=== PATIENT | female | born 2000 | race Caucasian/White ===

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

== ENCOUNTER 2021-02-26 14:21 | Emergency (ER) | payer OTHER, SELFPAY ==
--- NOTE | 2021-02-26 14:24 | ED.URI ---
HPI - URI/Sore Throat General Chief Complaint: Upper Respiratory Infection Stated Complaint: not feeling well Time Seen by Provider: 02/26/21 14:29 Source: patient, family and RN notes reviewed Mode of arrival: ambulatory Limitations: no limitations History of Present Illness HPI Narrative: 20-year-old female presents to the [facility] with complaints of I am not feeling well. Patient reports a headache and generalized fatigue along with nausea. States she does not get her period because she is on constant control pills. Patient reports that she has been sick since February 18 but she has a history of allergies. States that she had a rapid Covid test done at [facility] on Saturday, a week ago and was negative. Had a PCR done at [facility] on Saturday which she reports is negative but her boyfriend was positive. Reports that she also had a negative influenza done at that time as well Is both influenza and Covid vaccinated Related Data Home Medications Medication Instructions Recorded Confirmed levonorgestrel-ethinyl estrad tablet DAILY 09/29/20 10/06/20 [Lessina] Allergies Allergy/AdvReac Type Severity Reaction Status Date / Time codeine AdvReac Intermediate Nausea and Verified 02/26/21 14:39 Vomiting Penicillins AdvReac Intermediate Nausea and Verified 02/26/21 14:39 Vomiting Review of Systems Review of Systems: All systems reviewed & are unremarkable except as noted in HPI and below Constitutional: Constitutional: Reports as per HPI, Denies chills, Reports fatigue, Denies fever(s) and Denies headache(s) Eyes: Eyes: Reports no additional eye complaints ENT: Reports system reviewed and no additional complaints, except as documented, Denies vertigo, Denies dizziness, Denies headache(s), Denies nasal congestion and Denies sore throat Cardiovascular: Cardiovascular: Reports no additional cardiovascular complaints, Denies chest pain, Denies syncope, Denies rapid heart rate and Denies dyspnea Respiratory: Respiratory: Reports no additional respiratory complaints, Denies cough, Denies dyspnea and Denies wheezing Gastrointestinal: Gastrointestinal: Reports as per HPI, Denies abdominal pain, Denies diarrhea, Reports nausea and Denies vomiting Musculoskeletal: Musculoskeletal: Reports as per HPI, Reports myalgias and Denies numbness Integumentary/Breasts: Skin/Breast: Reports system reviewed and no additional complaints, except as docu Neurologic: Reports system reviewed and no additional complaints, except as documented, Denies vertigo, Denies dizziness, Denies syncope, Denies headache(s), Denies focal weakness and Denies numbness Psychiatric: Psychiatric: Reports no additional psychiatric complaints Allergic/Immunologic: Allergic/Immunologic: Reports no additional allergic/immunologic complaints and Denies wheezing PMFSH Past Medical History Medical History (Updated 02/26/21 @ 14:39 by Lindsay Solano) Bleeding nose Chronic headache History of constipation History of cough History of kidney stones History of nausea History of vomiting Hx of gastroesophageal reflux (GERD) Wears glasses Surgical History Surgical History H/O wisdom tooth extraction ~2016 History of tonsillectomy and adenoidectomy ~2010 Family History Family History Other Arthritis Depression Diabetes mellitus Heart disease Social History Social History Smoking status: Never smoker Alcohol intake: current Alcohol use details: occasionally Substance use: never Additional occupation/education comments: Caregiver Gender identity (if verbalized by the patient): Female Comments At the time of my signature, I reviewed and agree with the nursing past medical, surgical, social, and family history. There is no relevant family history pertinent to the patient complaint. Ex
[2021-02-26 14:29] VITALS: BP 134/82; PULSE 96; RESP 18; TEMP 37.5; O2SAT 99
[2021-02-27 20:23] LABS: SARS-CoV-2 RNA PCR Negative
== END 2021-02-26 14:44 | disposition home or self-care (01) ==
PROVIDERS: Emergency Provider Nurse Practitioner; PCP Family Medicine Adolescent Medicine
DX: B34.9 Viral infection, unspecified (principal); Z20.822 Contact with and (suspected) exposure to COVID-19; K21.9 Gastro-esophageal reflux disease without esophagitis
CPT/HCPCS: 99213; C9803; G0463; U0003; U0005

== ENCOUNTER 2022-01-13 09:53 | Emergency (ER) | payer BC, SELFPAY ==
--- NOTE | ~2022-01-13 | CT_ITS ---
EXAMINATION: CTA chest PE protocol DATE: 01/13/2022 11:09 INDICATION: Chest pain, shortness of breath, tachycardia. Oral contraceptive use. TECHNIQUE: Computed tomography angiography (CTA) of the chest was performed with 100 mL Omnipaque-350 intravenous contrast timed to evaluate the pulmonary arteries. Coronal maximum intensity projection 3D-reconstructions were created by the technologist. Automated exposure control and iterative reconst ruction technique were employed. Exam dose: 136.46 mGy-cm total exam DLP. COMPARISON: April 10, 2019 PA and lateral chest FINDINGS: The pulmonary moderately opacified with contrast material, without evidence of pulmonary em bolism. No thoracic aortic aneurysm or dissection. Normal heart size. No pericardial or pleural effusion. No hilar or mediastinal mass lesion or lymphadenopathy. The lungs are clear of infiltrate or consolidation or mass lesion. Normal adrenal glands. Included upper abdominal structures are unremarkable. No abnormality of included skeletal structures. IMPRESSION: Negative Reviewed, dictated and finalized at Location A. Reviewed, dictated and finalized at location A. H HEAT TREAT OPERATOR IMPRESSION: Negative
[2022-01-13 09:57] VITALS: BP 119/77; PULSE 142; RESP 23; TEMP 37.6; O2SAT 97
--- NOTE | 2022-01-13 10:00 | ECG_ITS ---
Measurements Intervals [place] Rate: 122 P: 36 RI: 141 QRS: 72 QRSD: 80 T: 30 QT: 338 QTc: 482 Interpretive Statements SINUS TACHYCARDIA NONSPECIFIC T-WAVE ABNORMALITY- ANT/INF LEADS ABNORMAL ECG NO PREVIOUS ECG AVAILABLE FOR COMPARISON Electronically Signed On 01-13-2022 10:17:34 SHELTER DIRECTOR by Shaan Eduardo D.O.
--- NOTE | 2022-01-13 10:12 | ED.FEVER ---
HPI - Fever General Chief Complaint: Fever Stated Complaint: fever Time Seen by Provider: 01/13/22 10:01 History of Present Illness HPI Narrative: 21-year-old female here for evaluation of shortness of breath, fevers, cough, sore throat over the past 3 days. Patient states that her fever has reached 102 degrees despite taking Tylenol. She also notes a chest discomfort that is there when she is taking deep breaths, rates it a 4 out of 10 and describes it as a tightness. Patient was seen in urgent care facility yesterday was tested for flu and COVID but these have not resulted yet. Was told to come to the ED if her fever does not reduce. She denies any leg swelling, syncope, sick contacts, history of blood clots. Patient does take oral contraceptives. Related Data Home Medications Medication Instructions Recorded Confirmed levonorgestrel-ethinyl estradiol tablet DAILY 09/29/20 10/06/20 0.1 mg-20 mcg tablet (Lessina) Allergies Allergy/AdvReac Type Severity Reaction Status Date / Time codeine AdvReac Intermediate Nausea and Verified 01/13/22 12:24 Vomiting Penicillins AdvReac Intermediate Nausea and Verified 01/13/22 12:24 Vomiting Review of Systems Review of Systems: Gen.: Denies fevers or chills Eyes: Denies eye pain or visual change ENT: Denies congestion Respiratory: Denies shortness of breath or cough CV: Denies chest pain or palpitations GI: Denies abdominal pain nausea, emesis or diarrhea denies burning, urgency, frequency or hematuria Musculoskeletal: Denies back pain or muscle pain Neuro: Denies numbness, tingling, weakness or focal weakness Skin: Denies rash Except as documented, all other systems reviewed and negative [facility] Past Medical History Medical History (Updated 01/13/22 @ 12:41 by Marilou Andrea PA-C) Bleeding nose Chronic headache History of constipation History of cough History of kidney stones History of nausea History of vomiting Hx of gastroesophageal reflux (GERD) Wears glasses Surgical History Surgical History H/O wisdom tooth extraction ~2017 History of tonsillectomy and adenoidectomy ~2010 Family History Family History Other Arthritis Depression Diabetes mellitus Heart disease Social History Social History Smoking status: Never smoker Alcohol intake: current Alcohol use details: occasionally Substance use: never Additional occupation/education comments: Caregiver Gender identity (if verbalized by the patient): Female Exam Narrative: APPEARANCE: Uncomfortable appearing, flushed Head: Normocephalic and atraumatic. EYES: PERRLA/EOMI, conjunctivae clear NOSE: No nasal drainage EARS: External ear normal in appearance THROAT: Tonsils are surgically absent. Oropharynx is clear. Mucous membranes are moist. NECK: Supple. No adenopathy, no masses. RESPIRATORY: Airway patent, respirations nonlabored. Clear to auscultation bilaterally, no rales, rhonchi, wheezing. CARDIOVASCULAR: Tachycardic. Regular rhythm without murmurs, rubs, or gallops. ABDOMINAL: Normoactive bowel sounds. Soft, nontender, nondistended. No rebound tenderness or guarding. MUSCULOSKELETAL: Extremities are warm and well-perfused. Moves all extremities well. No edema. NEURO: Normal speech. No focal neurologic deficits. SKIN: Skin is warm and dry. No rashes. PSYCHIATRIC: Normal affect/mood. Course Vital Signs Vital signs: Vital Signs Temperature 99.6 F 01/13/22 09:57 Pulse Rate 142 H 01/13/22 09:57 Respiratory Rate 23 H 01/13/22 09:57 Blood Pressure 119/77 01/13/22 09:57 Pulse Oximetry 97 01/13/22 09:57 Oxygen Delivery Room Air 01/13/22 09:57 Temperature 99.6 F 01/13/22 09:57 Pulse Rate 100 01/13/22 12:19 Respiratory Rate 18 01/13/22 12:19 Blood Pressure 105/63
[2022-01-13 10:19] LABS: Basophils Percent Auto 0.5 % (0.2-1.2); Hematocrit 42.4 % (37.0-47.0); Hemoglobin 14.3 g/dL (12.0-15.0); Immature Granulocyte Absolute 0.03 K/mm3 (0.00-0.031); Immature Granulocyte Percent A 0.4 % (0-0.5); Lymphocytes Absolute Auto 0.44 K/mm3 (0.9-3.2); Lymphocytes Percent Auto 5.6 % (18.3-44.2); Mean Corpuscular HGB Conc 33.7 g/dl (32-36); Mean Corpuscular Hemoglobin 28.8 pg (26-34); Mean Corpuscular Volume 85.3 fl (80-100); Mean Platelet Volume 10.2 fl (7.4-10.4); Monocytes Absolute Auto 0.6 K/mm3 (0.1-0.6); Monocytes Percent Auto 7.5 % (2.6-8.5); Neutrophils Absolute Auto 6.7 K/mm3 (1.3-6.7); Platelet Count Result 243 k/mm3 (150-375); Red Blood Count 4.97 M/mm3 (4.2-5.4); Red Cell Distribution Width 12.7 % (11.5-14.5); White Blood Count 7.8 K/mm3 (4.5-10.0)
[2022-01-13] MEDS: SODIUM CHLORIDE 0.9% IV 1,000 ML 999 ML IV CONT (10:19)
[2022-01-13] MEDS: ACETAMINOPHEN 325 MG TABLET 650 MG PO (10:20)
[2022-01-13 10:29] LABS: Alanine Aminotransferase 32 U/L (6-35); Albumin Level 4.6 g/dL (3.5-5.1); Alkaline Phosphatase 68 U/L (38-126); Anion Gap 14 mmol/L (8-16); Aspartate Amino Transferase 27 U/L (14-36); Bilirubin,Total 0.7 mg/dL (0.2-1.3); Blood Urea Nitrogen 8 mg/dL (7-17); Calcium 8.9 mg/dL (8.4-10.2); Carbon Dioxide 21 mmol/L (22-30); Chloride 101 mmol/L (98-107); Estimated Glomerular Filt Rate > 60; Glucose 97 mg/dL (65-110); Potassium 3.7 mmol/L (3.4-5.0); Sodium 136 mmol/L (137-145)
[2022-01-13 10:40] LABS: Troponin I < 0.012 ng/mL (0.000-0.034)
[2022-01-13 10:54] LABS: Influenza A QL RT-PCR Positive (Negative); Influenza B QL RT-PCR Negative (Negative); SARS-CoV-2 RNA PCR Negative
[2022-01-13 11:00] VITALS: RESP 18
[2022-01-13 12:19] VITALS: BP 105/63; PULSE 100; RESP 18; O2SAT 99
== END 2022-01-13 13:19 | disposition home or self-care (01) ==
PROVIDERS: Emergency Provider Physician Assistant; PCP Family Medicine Adolescent Medicine
DX: J10.1 Influenza due to other identified influenza virus with other respiratory manifestations (principal); Z20.822 Contact with and (suspected) exposure to COVID-19; K21.9 Gastro-esophageal reflux disease without esophagitis; R00.0 Tachycardia, unspecified; R94.31 Abnormal electrocardiogram [ECG] [EKG]
CPT/HCPCS: 36415; 71275; 80053; 81025; 84484; 85025; 87636; 93005; 96360; 99284; A9270; J7030; Q9967

== ENCOUNTER 2024-04-07 17:25 | Outpatient (CLI) | payer OTHER, SELFPAY ==
--- OUTSIDE RECORDS SUMMARY | 2024-04-07 17:28 | XMS_ITS | Encounter Summary ---
Author Organization [facility] Address [address] [place] [address] Phone Care Team Providers Care Speech Instructor Name Role Phone Nic Oneal MD Primary Care Prov ider Keaton Schwarz MD Unavailable [phone] Encounter Details Date Type Department Care Team (Late st Contact Info) Description 05/08/2020 Ophth Exam [facility] Ophthalmology [address] [place] [address] 1[address] [place] [address] Christopher May MD [address] [place] [address] Social History Tobacco Use Types Packs/Day Years Used Date Smoking Tobacco: Never Comments No Sex and Gender Information Value Date Recorded Sex Assigned at Not on file Legal Sex Female 4:01 AM MATERIALS MANAGER Gender Identity Female 06/04/2019 7:19 PM CDT Sexual Orientation Straight 06/04/2019 7: 19 PM CDT documented as of this encounter Plan of Treatment Not on file documented as of this encounter Visit Diagnoses Not on filedocumented in this encounter Additional Health Concerns Infection Onset Date Last Indicated Resolved Time COVID: Suspected 02/21/2021 02/21/2021 02/22/2021 7:13 AM MATERIALS MANAGER COVID: Suspected 03/30/2021 03/31/2021 03/31/2021 3:06 AM MATERIALS MANAGER COVID: Suspected 03/31/2021 03/31/2021 04/01/2021 3:05 AM MATERIALS MANAGER COVID: Suspected 03/31/2021 03/31/2021 04/01/2021 6:25 AM MATERIALS MANAGER documented as of this encounter Eye Exam Visual Acuity Right eye Left eye Near cc 20/20 20/20 Tonometry (Tonopen, 8:48 AM) Right eye Left eye Pressure 13 17 Pupils Dark Light Shape React APD Right eye 6 3 Round Brisk - Left eye 6 3 Round Brisk - Visual Evans (Counting fingers) Right eye Left eye Full Full Extraocular Movement Right eye Left eye Full Full Color Right eye Left eye Ishihara External Exam Right eye Left eye External Normal Normal Slit Lamp Exam Right eye Left eye Lids/Lashes Normal Normal Conjunctiva/Sclera White and quiet White and ari et Cornea Clear Clear Anterior Chamber Deep and quiet Deep and quiet Iris Round and reactive Round and heather ctive Lens Clear Clear Vitreous Normal Normal Fundus Exam Right eye Left eye Disc Normal, sharp margin s, no elevation, no pallor Normal, sharp margins, no elevation, no pallor C/D Ratio 0.2 0.2 Macula Normal, flat, no heme Normal, fl at, no heme Vessels Normal Normal Periphery Normal, no heme, att ached 360 w/o RD/RT Normal, no heme, attached 360 w/o RD/RT Care Teams Speech Instructor Relationship Specialty Start Date End Date Nic Oneal MD [address] [place] [address] PCP - General Family Medicine 10/14/17 Keaton Schwarz MD [address] [address] Referring Physician Orthopedic Surgery 10/06/20 documented as of this encounter
--- OUTSIDE RECORDS SUMMARY | 2024-04-07 17:28 | XMS_ITS | Referral Summary ---
Author Organization [facility] Address [address] [place] [address] Care Team Providers Care Friction Paint Machine Tender Name Role Phone Varghese Melo MD Primary Care Provider [phone] Source Comments [facility],non-owned Affiliates and Associated Physician Practices is amultiple site organization consisting of ambulatory clinics and hospital sitesin [place], [place], [place] and [place]. This disclosure is being madepursuant to the Care Everywhere program and may not contain all information available regarding this patient. Last updated [facility] Allergies No known active allergies Medications * Be aware that medications may not be up to date on this document. Alwaysverify current medications with the patient. Medication Sig Dispensed Refills Start Date End Date Status acetaminophen (TYLENOL) 325 MG tablet Take 325 mg by mouth every 4 hours as needed. Maximum allowable Acetaminophen amount = 4 Grams (4000 mg) / 24 hours. Active Active Problems Problem Noted Date Diagnosed Date Closed fracture of part of humerus 12/05/2010 Overview (11/18/2014): Social History Tobacco Use Types Packs/Day Years Used Date Smoking Tobacco: Never Assessed Sex and Gender Information Value Date Recorded Sex Assigned at Not on file Gender Identity Not on file Sexual Orientation Not on file Plan of Treatment Not on file Care Teams Friction Paint Machine Tender Relationship Specialty Start Date End Date Varghese Melo MD [address] [place] [id number] PCP - General 11/15/10
--- OUTSIDE RECORDS SUMMARY | 2024-04-07 17:28 | XMS_ITS | Referral Summary ---
Author Organization [facility] Address [address] [place] [id number] Care Team Providers Care Director Epidemiology Name Role Phone Nic Oneal MD Primary Care Prov ider Keaton Schwarz MD Unavailable [phone] Encounters Date Type Department Care Team Description 04/01/2024 Orders Only [facility] [address] [facility] [address] [facility] [address] [place] [address] Belia Monroy MD Myalgia (Primary Dx) 04/01/2024 Telephone [facility] [address] [facility] [address] [place] [address] Belia Monroy MD PMC Preprocedure; Pre Cert 03/05/2024 8:21 PM DEFECT REPAIRER GLASSWARE - 03/05/2024 11:59 PM DEFECT REPAIRER GLASS[employer] Hospital Encounter [facility] [address] [place] [id number] Cervicalgia Discharge Disposition: Discharge to home or self care 03/02/2024 10:54 AM DEFECT REPAIRER GLASSWARE - 03/02/2024 11:59 PM DEFECT REPAIRER GLASSWARE Hospital Encounter [facility] ([facility]) [address] [place] [id number] Cervicalgia Discharge Disposition: Discharge to home or self care 03/02/2024 9:08 AM DEFECT REPAIRER GLASSWARE - 03/02/2024 11:59 PM DEFECT REPAIRER GLASSWARE Hospital Encounter [facility] [address] [facility] [address] [place] [address] Judy Chavez NP Occipital neuralgia of left side (Primary Dx); Neck pain; Cervicalgia Discharge Disposition: Discharge to home or self care 01/24/2024 8:00 AM DEFECT REPAIRER GLASSWARE Office Visit [facility] ([facility]) - [facility] [address] [facility] [address] [place] [address] [place] [address] Hiram Smith MD Neck pain (Primary Dx); Morton syndrome; Cervicalgia from Last 3 Months Allergies Active Allergy Reactions Criticality Noted Date Comments Codeine Vomiting Low 09/07/2015 Penicillins Rash Medium 03/21/2017 Medications levothyroxine (SYNTHROID) 50 mcg tablet Take 1 tablet (50 mcg total) by mouth daily 02/05/2024 Active pregabalin (LYRICA) 50 mg capsuleIndicati ons:Neuropathic Pain Take 1 capsule (50 mg total) by mouth 2 (two) times a day 60 capsule 1 03/02/2024 Active Active Problems Problem Noted Date Diagnosed Date Headache 05/08/2020 Overview (05/08/2020): Could by migraines. Cluster headaches, chiari (bending over makes it worse), trigeminal neuralgia. Positional component that is worse with laying down XXX (sign of increased ICP). Could be to to IIH. No vomiting XXX. hCT did not show any acute neurologic process however will obtain MRI/MRV due to history of control and signs of increased ICP. Would see more of an XXX in CVST. Did not appreciate any optic disc swelling on initial fundoscopic exam, however this does not exclude increased ICP. Will consult ophtalmology in AM. - MRI/MRV brain WO contrast - Optho consult to look for papilledema in AM - Treat as migraine as she is responding and has strong FMhx - Migraine cocktail (benadryl, compazine, toradol) - IV fluids - Hold OCPs Assessment & Plan (05/10/2020 6:59 AM CDT): Amy is an 19yo female with hx of precocious puberty (at 9 years old) presenting with headache starting in 03/2020. Describes headache as frequent, multiple times a day headache that feels like burning, pressure at the left skull base and around left ear. Attacks last seconds to minutes each time and pain is severe. Worse supine. No throbbing, photophobia, phonophobia, vomiting, or weight loss. Normal mentation. No meningismus. No papilledema, per ophthalmology. She has severe tenderness to palpation of left cervical paraspinous area. The description and distribution is concerning for a neuralgia (such as auriculotemporal vs occipital neuralgia), in which case we could consult pain service and consider nerve block. She may have atypical migraines (no photophobia, phonophobia, pounding) given her strong family history of migraines and improvement with migraine cocktail and magnesium. Differential also includes cluster headaches. Likely not IIH given normal ophthalmology eye exam and unremarkable brain MRI 05/08. Not Chiari malformation given unremarkable brain MRI 05/08. On control, but not DVST given normal MRV 05/08. By evening of 05/08, her headache had resolved but she had some persistent midline neck pain. CK, aldolase, LDH unremarkable so unlikely myositis, myopathy. Cervical spine MRI/MRA normal with no signs of arthritis, radiculopathy. Her neck pain is most likely secondary to being tense during her headache. The neck pain is responsive to Robaxin, diclofenac gel, and lidocaine patch. Plan: - Continue scheduled Toradol q8h and Robaxin q8h - Continue diclofenac gel, lidocaine patch - s/p brain MRI/MRV 05/08, s/p MRI/MRA soft tissue neck 05/09 - all normal - Continue home OCP - Hold home trazodone - Consider pain consult for nerve block vs starting gabapentin vs starting carbamazepine/oxcarbazapine if neuralgia-like pain recurs Assessment & Plan (05/09/2020 3:04 PM CDT): Amy is an 19yo female with hx of precocious puberty (at 9 years old) presenting with headache starting in 03/2020. Describes headache as frequent, multiple times a day headache that feels like burning, pressure at the left skull base and around left ear. Attacks last seconds to minutes each time and pain is severe. Worse supine. No throbbing, photophobia, phonophobia, vomiting, or weight loss. Normal mentation. No meningismus. No papilledema, per ophthalmology. She has severe tenderness to palpation of left cervical paraspinous area that became more midline over the course of her admission. The description and distribution is concerning for a neuralgia (such as auriculotemporal vs occipital neuralgia), in which case we could consult pain service and consider nerve block. She may have atypical migraines (no photophobia, phonophobia, pounding) given her strong family history of migraines and improvement with migraine cocktail and magnesium. Differential also includes cluster headaches. Likely not IIH given normal ophthalmology eye exam and unremarkable brain MRI 05/08. Not Chiari malformation given unremarkable brain MRI 05/08. On control, but not DVST given normal MRV 05/08. By evening of 05/08, her headache had resolved but she had some persistent midline neck pain. On 05/09, she had soft-tissue swelling but no limited ROM of her neck so we obtained myositis/myopathy workup. CK, aldolase, LDH unremarkable. Will obtain cervical spine MRI/MRA to better evaluate neck pain and headache. The neck pain is responsive to Robaxin so if the MRI is unremarkable, it may just be muscle strain secondary to abnormal positioning during headache. Plan: - MRI/MRA cervical spine with/without contrast 05/09 - Continue scheduled Toradol q8h and Robaxin q8h - Continue maintenance IV fluids - Continue home OCP - Hold home trazodone - Consider pain consult for nerve block vs starting gabapentin vs starting carbamazepine/oxcarbazapine if neuralgia-like pain recurs Assessment & Plan (05/08/2020 1:55 AM CDT): 19yoF Amy Ruggiero with hx of precocious puberty (at 9 years old) and no significant neurological history DOMINGO started in March. Describes headache as a pressure that starts in occipital region on L side that can radiate forward as a burning and shooting pain. Differential diagnosis includes atypical migraines, IIH or from switching control. Cluster headaches, chiari (bending over makes it worse), trigeminal neuralgia. Positional component that is worse with laying down (sign of increased ICP). Could be to to IIH. No vomiting or weight loss. Mentation is appropriate and does not have meningismus on exam. In ED hCT did not show any acute neurologic process, however will obtain MRI/MRV due to history of control and signs of increased ICP. Did not appreciate any optic disc swelling on initial fundoscopic exam, however this does not exclude increased ICP. Will continue to treat as migraine due to strong FMHx and improvement with migraine cocktail in ED. - MRI/MRV brain WO contrast - Optho consult to look for papilledema - Migraine cocktail (benadryl, compazine, toradol), consider Mg if not improving - IV fluids - Hold OCPs Hypophosphatemia 05/08/2020 Assessment & Plan (05/09/2020 3:08 PM CDT): Phos 1.2 on admission. Repleted with Osmoprep. Phos 4.1 on 05/09. 05/09 labs also showed unremarkable CMP except for low alk phos, slightly high ALT 47; normal Mg, normal vitamin D, normal PTH. Hypophosphatemia is of unknown etiology and is difficult to tie in with her headache and neck pain. Plan: - repeat phos check in 1 week (will notify PCP) Assessment & Plan (05/09/2020 1:52 PM CDT): Phos 1.2 on admission. Repleted with Osmoprep. Phos 4.1 on 05/09. Plan: - repeat in 1 week (will notify PCP) Short stature for age 0103/18/2017 Precocious female puberty 03/18/2017 Resolved Problems Problem Noted Date Diagnosed Date Resolved Date Functional dyspepsia 07/09/2019 020 Gastroesophageal reflux dise ase without esophagitis 03/31/2018 11/17/2019 Regurgitation of food 03/31/20182019 Non-intractable vomiting without nausea 03/31/2018 07/09/2019 Epigastric pain 01/22/2018 11/17/2019 Overview (01/22/2018): Added automatically from request for surgery [id number] Social History Tobacco Use Types Packs/Day Years Used Date Smoking Tobacco: Never Smokeless Tobacco: Never Comments No Sex and Gender Information Value Date Recorded Sex Assigned at Not on file Legal Sex Female 4:01 AM DEFECT REPAIRER GLASSWARE Gender Identity Female 06/04/2019 7:19 PM CDT Sexual Orientation Straight 06/04/2019 7: 19 PM CDT Last Filed Vital Signs Vital Sign Reading Time Taken Comments Blood Pressure 122/72 03/02/2024 9:25 AM DEFECT REPAIRER GLASSWARE Pulse 92 03/02/2024 9:25 AM DEFECT REPAIRER GLASSWARE Temperature 36.6 C (97.8 F) 03/02/2024 9:25 AM DEFECT REPAIRER GLASSWARE Respiratory Rate 16 03/02/2024 9:25 AM DEFECT REPAIRER GLASSWARE Oxygen Saturation 95% 03/02/2024 9:25 AM DEFECT REPAIRER GLASSWARE Inhaled Oxygen Concentration - - Weight 63.5 kg (140 lb) 03/05/2024 8:29 PM DEFECT REPAIRER GLASSWARE Height 147.3 cm (4' 10 ) 03/05/2024 8:29 PM DEFECT REPAIRER GLASSWARE Body Mass Index 29.26 03/05/2024 8:29 PM DEFECT REPAIRER GLASSWARE Plan of Treatment Not on file Goals Goal Patient Goal Type Associated Problems Recent Progress Patient-Stated? Author CCM Chronic Pain Care Plan Chronic Care Management No Amira Harkins RN Note: Problem: Chronic Pain Goals: 1. Minimize further functional decline 2. Maximize quality of life 3. Control pain Strategies: - Activity/exercise program recommendation - Conservative stepwise pain medicine strategy with multi-disciplinary approach - Recommend healthy lifestyle strategies and compensatory methods as needed Procedures Procedure Name Priority Date/Time Associated Diagnosis Comments MRI CERVICAL SPINE WO CONTRAST Schedule Routine, Read Routine (OP Routine) 03/05/2024 9:03 PM DEFECT REPAIRER GLASSWARE Cervicalgia XR SPINE CERVICAL W FLEXION AND EXTENSION 4 VIEWS Schedule Routine, Read Routine (OP Routine) 03/02/2024 11:12 AM DEFECT REPAIRER GLASSWARE Cervicalgia from Last 3 Months Results * MRI Cervical Spine WO Contrast (03/05/2024 9:03 PM DEFECT REPAIRER GLASSWARE) Anatomical Region Laterality Modality Spine N/A Magnetic Resonan ce 03/06/2024 12:4 8 PM DEFECT REPAIRER GLASSWARE Impressions 03/06/2024 1:03 PM DEFECT REPAIRER GLASSWARE Normal exam. Dictated by: Seferino Mary D.O. The radiology attending physician has personally reviewed this study, and had reviewed and/or edited this written report and agrees with it. Electronically signed by: MD Rodney Live 03/06/2024 1:03 PM DEFECT REPAIRER GLASSWARE EXAMINATION: Magnetic resonance imaging (MRI) of the cervical spine without contrast HISTORY: 23 years-old Female with Neck pain, chronic. Left-sided neck pain radiating to left arm and upper extremity. TECHNIQUE: Multiplanar multi-weighted MRI of the cervical spine was performed without intravenous contrast using the standard protocol. COMPARISON: MRI soft tissue neck 05/07/2020. Cervical spine radiographs 03/02/2024. FINDINGS: The alignment of the cervical spine is normal. Vertebral bodies demonstrate normal signal intensity on all sequences. No acute fracture is identified. The craniocervical junction is normal. The visualized portions of the skull base and the posterior fossa are normal. The spinal cord demonstrates normal signal intensity on all sequences. Intervertebral disks have normal height and signal intensity. There are no annular fissures identified. No soft tissue abnormality is identified. Normal signal voids are present in the vertebral arteries. C2-C3: The disk is normal in configuration. There is no facet arthropathy. There is no uncovertebral joint disease. There is no neuroforaminal stenosis. There is no spinal canal stenosis. C3-C4: The disk is normal in configuration. There is no facet arthropathy. There is no uncovertebral joint disease. There is no neuroforaminal stenosis. There is no spinal canal stenosis. C4-C5: The disk is normal in configuration. There is no facet arthropathy. There is no uncovertebral joint disease. There is no neuroforaminal stenosis. There is no spinal canal stenosis. C5-C6: The disk is normal in configuration. There is no facet arthropathy. There is no uncovertebral joint disease. There is no neuroforaminal stenosis. There is no spinal canal stenosis. C6-C7: The disk is normal in configuration. There is no facet arthropathy. There is no uncovertebral joint disease. There is no neuroforaminal stenosis. There is no spinal canal stenosis. C7-T1: The disk is normal in configuration. There is no facet arthropathy. There is no uncovertebral joint disease. There is no neuroforaminal stenosis. There is no spinal canal stenosis. Procedure Note Camilo Chase MD PhD - 03/06/2024 EXAMINATION: Magnetic resonance imaging (MRI) of the cervical spine without contrast HISTORY: 23 years-old Female with Neck pain, chronic. Left-sided neck pain radiating to left arm and upper extremity. TECHNIQUE: Multiplanar multi-weighted MRI of the cervical spine was performed without intravenous contrast using the standard protocol. COMPARISON: MRI soft tissue neck 05/07/2020. Cervical spine radiographs 03/02/2024. FINDINGS: The alignment of the cervical spine is normal. Vertebral bodies demonstrate normal signal intensity on all sequences. No acute fracture is identified. The craniocervical junction is normal. The visualized portions of the skull base and the posterior fossa are normal. The spinal cord demonstrates normal signal intensity on all sequences. Intervertebral disks have normal height and signal intensity. There are no annular fissures identified. No soft tissue abnormality is identified. Normal signal voids are present in the vertebral arteries. C2-C3: The disk is normal in configuration. There is no facet arthropathy. There is no uncovertebral joint disease. There is no neuroforaminal stenosis. There is no spinal canal stenosis. C3-C4: The disk is normal in configuration. There is no facet arthropathy. There is no uncovertebral joint disease. There is no neuroforaminal stenosis. There is no spinal canal stenosis. C4-C5: The disk is normal in configuration. There is no facet arthropathy. There is no uncovertebral joint disease. There is no neuroforaminal stenosis. There is no spinal canal stenosis. C5-C6: The disk is normal in configuration. There is no facet arthropathy. There is no uncovertebral joint disease. There is no neuroforaminal stenosis. There is no spinal canal stenosis. C6-C7: The disk is normal in configuration. There is no facet arthropathy. There is no uncovertebral joint disease. There is no neuroforaminal stenosis. There is no spinal canal stenosis. C7-T1: The disk is normal in configuration. There is no facet arthropathy. There is no uncovertebral joint disease. There is no neuroforaminal stenosis. There is no spinal canal stenosis. IMPRESSION: Normal exam. Dictated by: Seferino Mary D.O. The radiology attending physician has personally reviewed this study, and had reviewed and/or edited this written report and agrees with it. Electronically signed by: Camilo Chase MD Judy Chavez NP IMG MRI PROCEDURES Christina l Result * XR Spine Cervical W Flexion And Extension 4 or 5 Views (03/02/2024 11:12 AM DEFECT REPAIRER GLASSWARE) Anatomical Region Laterality Modality Spine N/A Computed Radiogr aphy 03/02/2024 12:2 2 PM DEFECT REPAIRER GLASSWARE Impressions 03/02/2024 12:22 PM DEFECT REPAIRER GLASSWARE 1. Normal radiographic appearance of the cervical spine. Electronically signed by: Odell Stoner D.O. Narrative 03/02/2024 12:22 PM DEFECT REPAIRER GLASSWARE EXAMINATION: XR SPINE CERVICAL W FLEXION AND EXTENSION 4 OR 5 VIEWS HISTORY: chronic neck pain FINDINGS: Comparison is made to 05/07/2020 radiographs. Intervertebral disc spaces and vertebral body heights are maintained. No significant osseous foraminal stenosis. Normal alignment without spondylolisthesis. Cervical prevertebral soft tissues are within normal limits. Procedure Note Odell Stoner, DO - 03/02/2024 EXAMINATION: XR SPINE CERVICAL W FLEXION AND EXTENSION 4 OR 5 VIEWS HISTORY: chronic neck pain FINDINGS: Comparison is made to 05/07/2020 radiographs. Intervertebral disc spaces and vertebral body heights are maintained. No significant osseous foraminal stenosis. Normal alignment without spondylolisthesis. Cervical prevertebral soft tissues are within normal limits. IMPRESSION: 1. Normal radiographic appearance of the cervical spine. Electronically signed by: Odell Stoner D.O. Judy Chavez NP IMG XR PROCEDURES Final Result from Last 3 Months Insurance [employer] [facility] HMO/PPO Address: [address] [address] [place] [address] [place] [address] [facility] H[facility]/PPO Address: [facility] [address] [place] [address] [facility] AETNA SIG [id number] Advance Directives For more information, please contact: [phone] Documents on File Type Date Recorded Patient Vp Respiratory Expl anation ADVANCE DIRECTIVE 05/07/2020 5:10 PM * Full Code (Latest Code Status on File) Date Activated Date Inactivated Comments 05/08/2020 12:14 AM 05/10/2020 4:50 PM Care Teams Director Epidemiology Relationship Specialty Start Date End Date Nic Oneal MD [address] [place] [address] PCP - General Family Medicine 10/14/17 Keaton Schwarz MD [address] [facility] [address] [place] [address] Referring Physician Orthopedic Surgery 10/06/20
--- OUTSIDE RECORDS SUMMARY | 2024-04-07 17:28 | XMS_ITS | Patient Health Summary ---
Author Organization [facility] [employer] Address [address] [place] [address] Care Team Providers Care Police Manager Name Role Phone Varghese Melo MD Primary Care Provider [phone] Note from [facility],non-owned Affiliates and Associated Physician Practices is amultiple site organization consisting of ambulatory clinics and hospital sitesin [place], [place], [place] and [place]. This disclosure is being madepursuant to the Care Everywhere program and may not contain all information available regarding this patient. Last updated 17.[facility] [employer] Allergies No known active allergies Medications * Be aware that medications may not be up to date on this document. Alwaysverify current medications with the patient. * acetaminophen (TYLENOL) 325 MG tablet Take 325 mg by mouth every 4 hours as needed. Maximum allowable Acetaminophen amount = 4 Grams (4000 mg) / 24 hours. Active Problems Problem Noted Date Diagnosed Date Closed fracture of part of humerus 12/05/2010 Social History Tobacco Use Types Packs/Day Years Used Date Smoking Tobacco: Never Assessed Sex and Gender Information Value Date Recorded Sex Assigned at Not on file Gender Identity Not on file Sexual Orientation Not on file Procedures * XR HUMERUS RIGHT 2VW OR MORE(Performed 12/05/2010) Performed for Closed fracture of unspecified part of humerus Results * XR HUMERUS 2+ VW RIGHT (12/05/2010 1:08 PM CDT) Anatomical Region Laterality Modality Upper Extremity Radiographic Kenia ging 12/05/2010 1:28 PM CDT Impressions 12/05/2010 2:58 PM CDT Healing fracture of the proximal humeral diaphysis. D: Chris Wallis M.D. Narrative 12/05/2010 2:58 PM CDT Exam: Right humerus, 2 views Date: 12/05/2010 Comparison: 11/14/2010 Findings: A healing fracture of the proximal humeral diaphysis is unchanged in position and alignment. Increased periosteal new bone formation is seen at the fracture site. No other fractures are identified. The glenohumeral joint is well aligned. Bone mineralization is normal. Procedure Note Andrade Ed Franco - 12/05/2010 Exam: Right humerus, 2 views Date: 12/05/2010 Comparison: 11/14/2010 Findings: A healing fracture of the proximal humeral diaphysis is unchanged in position and alignment. Increased periosteal new bone formation is seen at the fracture site. No other fractures are identified. The glenohumeral joint is well aligned. Bone mineralization is normal. IMPRESSION Healing fracture of the proximal humeral diaphysis. D: Chris Wallis M.D. Lindsey Melgoza MD [facility]ST[facility] Care Teams Police Manager Relationship Specialty Start Date End Date Varghese Melo MD [address] [place] [id number] PCP - General 11/15/10
--- OUTSIDE RECORDS SUMMARY | 2024-04-07 17:28 | XMS_ITS | Encounter Summary ---
Author Organization [facility] Healthcare Address [address] [place] [address] Care Team Providers Care Control System Manager Name Role Phone Nic Oneal MD Primary Care Prov ider Keaton Schwarz MD Unavailable [phone] Reason for Visit * Reason Onset Date Comments PMC Preprocedure 04/01/2024 Pre Cert 04/01/2024 Encounter Details Date Type Department Care Team (Late st Contact Info) Description 04/01/2024 Telephone [facility] [place] [facility] [address] [facility] Advanced Medicine [address] [place] [address] Belia Monroy MD [address] [place] [address] PMC Preprocedure; Pre Cert Social History Tobacco Use Types Packs/Day Years Used Date Smoking Tobacco: Never Smokeless Tobacco: Never Comments No Sex and Gender Information Value Date Recorded Sex Assigned at Not on file Legal Sex Female 4:01 AM X RAY EQUIPMENT SERVICER Gender Identity Female 06/04/2019 7:19 PM CDT Sexual Orientation Straight 06/04/2019 7: 19 PM CDT documented as of this encounter Miscellaneous Notes * Telephone Encounter - Rupa Cronin RN - 04/02/2024 10:26 AM CST LM to call [phone] to reschedule due to Occipital NB denial. Reschedule for at least another 2 weeks out for TPI; to try to get approval for TPI. X RAY EQUIPMENT SERVICER * Telephone Encounter - Yue Grimm - 04/01/2024 12:50 PM CST I can precert for a TPI, I won't have approval by tomorrow though. Her insurance takes quite awhile. X RAY EQUIPMENT SERVICER * Telephone Encounter - Yue Grimm - 04/01/2024 8:46 AM CST Occipital Nerve Block was denied Not a covered benefit, considered unproven and not medically necessary to tread occiptal headaches or neuralgia. No peer to peer or appeal available as it is not a covered benefit. Please review and advise. X RAY EQUIPMENT SERVICER documented in this encounter Plan of Treatment Not on file documented as of this encounter Goals Goal Patient Goal Type Associated Problems [...] lifestyle strategies and compensatory methods as needed documented as of this encounter Visit Diagnoses Not on filedocumented in this encounter Care Teams Control System Manager Relationship Specialty Start Date End Date Nic Oneal MD [address] [place] [address] PCP - General Family Medicine 10/14/17 Keaton Schwarz MD [address] [address] Referring Physician Orthopedic Surgery 10/06/20 documented as of this encounter
--- OUTSIDE RECORDS SUMMARY | 2024-04-07 17:28 | XMS_ITS | Clinical Summary ---
Author Organization [facility] Address [address] [place] [address] Care Team Providers Care Relay Associate Name Role Phone Varghese Melo MD Primary Care Provider [phone] Source Comments [facility],non-owned Affiliates and Associated Physician Practices is amultiple site organization consisting of ambulatory clinics and hospital sitesin [place], [place], [place] and [place]. This disclosure is being madepursuant to the Care Everywhere program and may not contain all information available regarding this patient. Last updated 17.[facility] Allergies No known active allergies Medications * [...] Orientation Not on file Plan of Treatment Health Maintenance Due Date Last Done Comments PAP SMEAR 2001 HIV SCREENING 2016 HPV VACCINE (1 - 3-dose series) 2016 CHLAMYDIA/GONORRHEA SCREENING 2017 MENINGOCOCCAL (Group B) VACC INE (1 of 2 - Standard) 2017 HEPATITIS C SCREENING 10/24/2019 DTAP/TDAP/TD VACCINES (1 - Tdap) 2020 HEPATITIS B VACCINE (1 of 3 - 19+ 3-dose series) 2020 COVID-19 VACCINE (1 - 2023-2 5 season) 2023 INFLUENZA VACCINE (#1) 2023 DEPRESSION SCREENING 02/19/2024 ZOSTER VACCINE (1 of 2) 10/29/2051 HIB VACCINE Aged Out No longer eligi ble based on patient's age to complete this topic MENINGOCOCCAL VACCINE Aged Out No theresa mary eligible based on patient's age to complete this topic PNEUMOCOCCAL VACCINE Aged Out No long er eligible based on patient's age to complete this topic Care Teams Relay Associate Relationship Specialty Start Date End Date Varghese Melo MD [address] [place] [id number] PCP - General 11/15/10
--- OUTSIDE RECORDS SUMMARY | 2024-04-07 17:28 | XMS_ITS | Clinical Summary ---
Author Organization [facility] Address [address] [place] [address] Care Team Providers Care Water Superintendent Name Role Phone Nic Oneal MD Primary Care Provider [phone] Allergies Active Allergy Reactions Criticality Noted Date Comments Codeine Rash,Vomiting Low 09/14/2020 Penicillins Rash,Vomiting Low 09/14/2020 Medications levonorgestrel-e thinyl estradiol (LESSINA-28) 0.1-20 MG-MCG tablet Take 1 tablet by mouth daily. Active Social History Tobacco Use Types Packs/Day Years Used Date Smoking Tobacco: Former Cigarettes Q uit: 2019 Smokeless Tobacco: Never Alcohol Use Standard Drinks/Week Comments Yes 0 (1 standard drink = 0.6 oz pur e alcohol) occasional Comments No Sex and Gender Information Value Date Recorded Sex Assigned at Female 09/14/2020 3:47 AM CDT Legal Sex Female 5:39 PM CDT Gender Identity Female 09/14/2020 3:47 AM CDT Sexual Orientation Straight 09/14/2020 3: 47 AM CDT Last Filed Vital Signs Vital Sign Reading Time Taken Comments Blood Pressure 111/75 09/14/2020 5:26 AM CDT Pulse 81 09/14/2020 5:26 AM CDT Temperature 36.8 C (98.3 F) 09/14/2020 5:26 AM CDT Respiratory Rate 18 09/14/2020 5:26 AM CDT Oxygen Saturation 100% 09/14/2020 5:26 AM CDT Inhaled Oxygen Concentration - - Weight 49.9 kg (110 lb) 09/14/2020 3:33 AM CDT Height 147.3 cm (4' 10 ) 09/14/2020 3:33 AM CDT Body Mass Index 22.99 09/14/2020 3:33 AM CDT Plan of Treatment Health Maintenance Due Date Last Done Comments Cervical Cancer Screening Pap Smear (Age 21 to 29) Every 3 Years 2001 Cervical Cancer Screening 2001 Annual Physical 2004 DTaP, Tdap and Td Vaccines (6 - Tdap) 2012 07/21/2007, 10/19/2003, 05/07/2002, Additional history exists HPV Vaccines (2 - 2-dose series) 03/26/2014 09/23/2013 Meningococcal B Vaccine (1 of 2 - Standard) 2017 Hepatitis C 10/29/2019 Hepatitis B Vaccines (1 of 3 - 19+ 3-dose series) 2020 COVID-19 Vaccine ( - season) 2023 05/10/2020, 04/19/2020 Influenza Adult (#1) 2023 Meningococcal Vaccine Aged Out 09/23/2013 No theresa mary eligible based on patient's age to complete this topic Pneumococcal Vaccine: Pediatrics (0 to 5 Years) and At-Risk Patients (6 to 64 Years) Aged Out No longer eligible based on patient's age to complete this topic RSV Immunizations Under 20 Months Aged Out No longer eligible based on patient's age to complete this topic [facility] Care Teams Water Superintendent Relationship Specialty Start Date End Date Nic Oneal MD [address] [address] PCP - General FAMILY PRACTICE 09/14/20
--- OUTSIDE RECORDS SUMMARY | 2024-04-07 17:28 | XMS_ITS | Clinical Summary ---
Author Organization [facility] Address [address] [place] [address] Care Team Providers Care Cause Analyst Name Role Phone Nic Oneal MD Primary Care Prov ider Keaton Schwarz MD Unavailable [phone] Allergies Active Allergy Reactions Criticality Noted Date Comments Codeine Vomiting Low 09/07/2015 Penicillins Rash Medium 03/21/2017 Medications levothyroxine (SYNTHROID) 50 mcg tablet Take 1 tablet (50 mcg total) by mouth daily 02/05/2024 Active pregabalin (LYRICA) 50 mg capsuleIndicati ons:Neuropathic Pain Take 1 capsule (50 mg total) by mouth 2 (two) times a day 60 capsule 1 03/02/2024 5 Active Active Problems Problem Noted Date Diagnosed [...] Diagnosed Date Resolved Date Functional dyspepsia 07/09/2019 05/21/2 020 Gastroesophageal reflux dise ase without esophagitis 03/31/2018 11/17/2019 Regurgitation of food 03/31/20182019 Non-intractable vomiting without nausea 03/31/2018 07/09/2019 Epigastric pain 01/22/2018 11/17/2019 Overview (01/22/2018): Added automatically from request for surgery [id number] Encounters Date Type Department Care Team Description 04/01/2024 Orders Only [facility] [address] [place] [address] for Advanced Medicine [address] [place] [address] Belia Monroy MD Myalgia (Primary Dx) 04/01/2024 Telephone [facility] [address] [place] [address] Advanced Medicine [address] [place] [address] Belia Monroy MD PMC Preprocedure; Pre Cert 03/05/2024 8:21 PM GOLF CLUB FACER - 03/05/2024 11:59 PM GOLF CLUB FACER Hospital Encounter [facility] ([facility]) [address] [place] [address] Cervicalgia Discharge Disposition: Discharge to home or self care 03/02/2024 10:54 AM GOLF CLUB FACER - 03/02/2024 11:59 PM GOLF CLUB FACER Hospital Encounter [facility] ([facility]) [address] [place] [address] Cervicalgia Discharge Disposition: Discharge to home or self care 03/02/2024 9:08 AM GOLF CLUB FACER - 03/02/2024 11:59 PM GOLF CLUB FACER Hospital Encounter [facility] [address] [place] [address] Advanced Medicine [address] [place] [address] Judy Chavez NP Occipital neuralgia of left side (Primary Dx); Neck pain; Cervicalgia Discharge Disposition: Discharge to home or self care 01/24/2024 8:00 AM GOLF CLUB FACER Office Visit [facility] ([facility]) - [facility] [address] [place] [address] Advanced Medicine [address]th [place] [address] [place] [address] Hiram Smith MD Neck pain (Primary Dx); Gadsden syndrome; Cervicalgia from Last 3 Months Surgical History Surgery Date Site/Laterality Comments TONSILECTOMY, ADENOIDECTOMY, BILATERAL MYRINGOTOMY AND TUBES 02/19/2008 - 02/17/2009 WISDOM TOOTH EXTRACTION 02/18/2018 - 02/17/2019 Medical History Medical History Date Comments Personal history of other di seases of the nervous system and sense organs History of migraine - (Added by TW Conv) Gastroesophageal reflux dise ase without esophagitis 03/31/2018 Anxiety UTI (urinary tract infection) Family History Medical History Relation Name Comments Arthritis Maternal Grandfather Heart disease Maternal Grandfather Hypertension Maternal Grandfather Diabetes Paternal Grandfather GI problems Paternal Grandfather Family history of gastroesophageal reflux disease - (Added by TW Conv) Kidney disease Paternal Grandfather Narcolepsy Paternal Grandfather Relation Name Status Comments Maternal Grandfather Paternal Grandfather Social History Tobacco Use Types Packs/Day Years Used Date Smoking Tobacco: Never Smokeless Tobacco: Never Comments No Sex and Gender Information Value Date Recorded Sex Assigned at Not on file Legal Sex Female 4:01 AM GOLF CLUB FACER Gender Identity Female 06/04/2019 7:19 PM CDT Sexual Orientation Straight 06/04/2019 7: 19 PM CDT Obstetrics History Last Filed Vital Signs Vital Sign Reading Time Taken Comments Blood Pressure 122/72 03/02/2024 9:25 AM GOLF CLUB FACER Pulse 92 03/02/2024 9:25 AM GOLF CLUB FACER Temperature 36.6 C (97.8 F) 03/02/2024 9:25 AM GOLF CLUB FACER Respiratory Rate 16 03/02/2024 9:25 AM GOLF CLUB FACER Oxygen Saturation 95% 03/02/2024 9:25 AM GOLF CLUB FACER Inhaled Oxygen Concentration - - Weight 63.5 kg (140 lb) 03/05/2024 8:29 PM GOLF CLUB FACER Height 147.3 cm (4' 10 ) 03/05/2024 8:29 PM GOLF CLUB FACER Body Mass Index 29.26 03/05/2024 8:29 PM GOLF CLUB FACER Plan of Treatment Health Maintenance Due Date Last Done Comments Cervical Cancer Screening 2001 Depression Screening 2001 Hepatitis C Screening 2001 HPV Vaccines (2 - 2-dose series) 03/26/2014 09/23/2013 Meningococcal B Vaccine (1 of 2 - Standard) 2017 Regular Well Visit/Exam 18-64 10/29/2019 DTaP/Tdap/Td Vaccine (7 - Td or Tdap) 09/24/2023 09/23/2013, 07/21/2007, 10/19/2003, Additional history exists Covid-19 Vaccine (2023- season) 2023 05/10/2020, 04/19/2020 Influenza Vaccine (#1) 2023 9, 12/26/2006, 12/20/2005 Hepatitis B Screening Completed 05/07/2002 , 2001, 2001 Varicella Vaccines Completed 09/23/2013, 12/07/2003 Pneumococcal vaccine <65 Aged Out No longer eligible based on patient's age to complete this topic Goals Goal Patient Goal Type Associated Problems Recent Progress Patient-Stated? Author CCM Chronic Pain Care Plan Chronic Care Management No Amira Harkins, RN Note: Problem: Chronic Pain Goals: 1. [...] Read Routine (OP Routine) 03/05/2024 9:03 PM GOLF CLUB FACER Cervicalgia XR SPINE CERVICAL W FLEXION AND EXTENSION 4 VIEWS Schedule Routine, Read Routine (OP Routine) 03/02/2024 11:12 AM GOLF CLUB FACER Cervicalgia from Last 3 Months Results * MRI Cervical Spine WO Contrast (03/05/2024 9:03 PM GOLF CLUB FACER) Anatomical Region Laterality Modality Spine N/A Magnetic Resonan ce 03/06/2024 12:4 8 PM GOLF CLUB FACER Impressions 03/06/2024 1:03 PM GOLF CLUB FACER Normal exam. Dictated by: Seferino Mary D.O. The radiology attending physician has personally reviewed this study, and had reviewed and/or edited this written report and agrees with it. Electronically signed by: Camilo Chase MD Narrative 03/06/2024 1:03 PM GOLF CLUB FACER EXAMINATION: Magnetic resonance imaging (MRI) of the [...] Judy Chavez NP IMG MRI PROCEDURES Christina beulah Result * XR Spine Cervical W Flexion And Extension 4 or 5 Views (03/02/2024 11:12 AM GOLF CLUB FACER) Anatomical Region Laterality Modality Spine N/A Computed Radiogr aphy 03/02/2024 12:2 2 PM GOLF CLUB FACER Impressions 03/02/2024 12:22 PM GOLF CLUB FACER 1. Normal radiographic appearance of the cervical spine. Electronically signed by: Odell Stoner D.O. Narrative 03/02/2024 12:22 PM GOLF CLUB FACER EXAMINATION: XR SPINE CERVICAL W FLEXION AND [...] Final Result from Last 3 Months Insurance [facility] [address] Advance Directives For more information, please contact: [phone] Documents on File Type Date Recorded Patient Manager Of Broadcast Content Expl anation ADVANCE DIRECTIVE 05/07/2020 5:10 PM * Full Code (Latest Code Status on File) Date Activated Date Inactivated Comments 05/08/2020 12:14 AM 05/10/2020 4:50 PM Care Teams Cause Analyst Relationship Specialty Start Date End Date Nic Oneal MD [address] [place] [address] PCP - General Family Medicine 10/14/17 Keaton Schwarz MD [address] [address] Referring Physician Orthopedic Surgery 10/06/20
[2024-04-07 17:50] LABS: Alanine Aminotransferase 20 U/L (6-35); Albumin Level 4.4 g/dL (3.5-5.1); Alkaline Phosphatase 71 U/L (38-126); Anion Gap 13 mmol/L (4-12); Aspartate Amino Transferase 23 U/L (14-36); Bilirubin,Total 0.5 mg/dL (0.2-1.3); Blood Urea Nitrogen 13 mg/dL (7-17); Calcium 9.5 mg/dL (8.4-10.2); Carbon Dioxide 23 mmol/L (22-30); Chloride 104 mmol/L (98-107); Cholesterol 190 mg/dL (0-200); Estimated Glomerular Filt Rate > 60; Glucose 89 mg/dL (65-110); HDL Direct 54 mg/dL; Potassium 4.2 mmol/L (3.4-5.0); Sodium 140 mmol/L (137-145); Triglycerides 52 mg/dL (<150)
[2024-04-07 18:01] LABS: LDL Cholesterol Direct 112 mg/dL
== END 2024-04-07 17:26 | disposition home or self-care (01) ==
LOC: ANHLAB 17:27
PROVIDERS: PCP Family Medicine; Visit Provider Family Medicine
DX: E03.9 Hypothyroidism, unspecified (principal); Z13.6 Encounter for screening for cardiovascular disorders; Z13.1 Encounter for screening for diabetes mellitus
CPT/HCPCS: 36415; 80053; 80061; 83036; 84443

== ENCOUNTER 2024-11-24 09:18 | Outpatient (CLI) | payer OTHER, SELFPAY ==
--- OUTSIDE RECORDS SUMMARY | 2024-11-24 09:50 | XMS_ITS | Clinical Summary ---
Author Organization [facility] Address [address] [place] [address] Care Team Providers Care Prick Stitcher Name Role Phone Nic Oneal MD Primary Care Prov ider Keaton Schwarz MD Unavailable [phone] Allergies Active Allergy Reactions Criticality Noted Date Comments Codeine Vomiting Low 09/07/2015 Penicillins Rash Medium 03/21/2017 Medications levothyroxine (SYNTHROID) 50 mcg tablet Take 1 tablet (50 mcg total) by mouth daily 02/05/2024 Active phentermine (ADIPEX-P) 37.5 mg tablet 05/06/2024 Active Active Problems Problem Noted Date Diagnosed [...] Plan (05/08/2020 1:55 AM CDT): 19yoF Amy Everright with hx of precocious puberty (at 9 [...] (01/22/2018): Added automatically from request for surgery [id number] Surgical History Surgery Date Site/Laterality Comments TONSILECTOMY, ADENOIDECTOMY, BILATERAL MYRINGOTOMY AND TUBES 02/19/2008 - 02/17/2009 WISDOM TOOTH EXTRACTION 02/18/2018 - 02/17/2019 ADENOIDECTOMY COLONOSCOPY Medical History Medical History Date Comments Personal history of other di seases of the nervous system and sense organs History of migraine - (Added by TW Conv) Gastroesophageal reflux dise ase without esophagitis 03/31/2018 Anxiety UTI (urinary tract infection) Family History Medical History Relation Name Comments Arthritis Maternal Grandfather Oscar Heart disease Maternal Grandfather Oscar Hypertension Maternal Grandfather Oscar Diabetes Paternal Grandfather Laberta GI problems Paternal Grandfather Alberta Family history of gastroesophageal reflux disease - (Added by TW Conv) Kidney disease Paternal Grandfather Alberta Narcolepsy Paternal Grandfather Alberta Relation Name Status Comments Maternal Grandfather Oscar Paternal Grandfather Alberta Social History Tobacco Use Types Packs/Day Years Used Date Smoking Tobacco: Never Smokeless Tobacco: Never Comments No Sex and Gender Information Value Date Recorded Sex Assigned at Not on file Legal Sex Female 4:01 AM POWER BRAKE OPERATOR Gender Identity Female 06/04/2019 7:19 PM CDT Sexual Orientation Straight 06/04/2019 7: 19 PM CDT Obstetrics History Last Filed Vital Signs Vital Sign Reading Time Taken Comments Blood Pressure 125/77 05/15/2024 2:36 PM CDT Pulse 95 05/15/2024 2:36 PM CDT Temperature 36.5 C (97.7 F) 05/15/2024 2:36 PM CDT Respiratory Rate 14 05/15/2024 2:36 PM CDT Oxygen Saturation 99% 05/15/2024 2:36 PM CDT Inhaled Oxygen Concentration - - Weight 58.1 kg (128 lb) 05/15/2024 2:36 PM CDT Height 147.3 cm (4' 10) 05/15/2024 2:36 PM CDT Body Mass Index 26.75 05/15/2024 2:36 PM CDT Plan of Treatment Health Maintenance Due Date Last Done Comments Cervical Cancer Screening 2001 Depression Screening 2001 Hepatitis C Screening 2001 HPV Vaccines (2 - 2-dose series) 03/26/2014 09/23/2013 Meningococcal B Vaccine (1 of 2 - Standard) 2017 Regular Well Visit/Exam 18-64 10/29/2019 DTaP/Tdap/Td Vaccine (7 - Td or Tdap) 09/24/2023 09/23/2013, 07/21/2007, 10/19/2003, Additional history exists Covid-19 Vaccine ( season) 2024 05/10/2020, 04/19/2020 Influenza Vaccine (#1) 2024 9, 12/26/2006, 12/20/2005 Hepatitis B Screening Completed 05/07/2002 , 2001, 2001 Varicella Vaccines Completed 09/23/2013, 12/07/2003 Pneumococcal vaccine <65 Aged Out No longer eligible based on patient's age to complete this topic Goals Goal Patient Goal Type Associated Problems Recent Progress Patient-Stated? Author CCM Chronic Pain Care Plan Chronic Care Management No change(05/15 3:32 PM CDT) No Amira Harkins, RN Note: Problem: Chronic Pain Goals: 1. Minimize further functional decline 2. Maximize quality of life 3. Control pain Strategies: - Activity/exercise program recommendation - Conservative stepwise pain medicine strategy with multi-disciplinary approach - Recommend healthy lifestyle strategies and compensatory methods as needed Insurance [employer] [facility] HMO/PPO Address: [address] [address] [place] [address] [facility] HMO/PPO Address: [address] [address] [place] [address] [facility] [employer] SIG [id number] Advance Directives For more information, please contact: [phone] Documents on File Type Date Recorded Patient Adjunct Professor Of Voice Expl anation ADVANCE DIRECTIVE 05/07/2020 5:10 PM * Full Code (Latest Code Status on File) Date Activated Date Inactivated Comments 05/08/2020 12:14 AM 05/10/2020 4:50 PM Care Teams Prick Stitcher Relationship Specialty Start Date End Date Nic Oneal MD PCP - General Family Medicine 10/14/17 Keaton Schwarz MD [address] [address] Referring Physician Orthopedic Surgery 10/06/20
--- OUTSIDE RECORDS SUMMARY | 2024-11-24 09:50 | XMS_ITS | Encounter Summary ---
Author Organization [facility] Healthcare Address [address] [place] [address] Care Team Providers Care Loading Unit Operator Crimping Name Role Phone Nic Oneal MD Primary Care Prov ider Keaton Schwarz MD Unavailable [phone] Reason for Visit * Reason Onset Date Comments Pre Procedu Instructions 05/12/2024 Encounter Details Date Type Department Care Team (Late st Contact Info) Description 05/12/2024 Telephone [facility] [place] [facility] [address] [facility] Advanced Medicine [address] [place] [address] Belia Monroy MD [address] [place] [address] Pre Procedu Instructions Social History Tobacco Use Types Packs/Day Years Used Date Smoking Tobacco: Never Smokeless Tobacco: Never Comments No Sex and Gender Information Value Date Recorded Sex Assigned at Not on file Legal Sex Female 4:01 AM PRODUCE FIELD MERCHANDISER Gender Identity Female 06/04/2019 7:19 PM CDT Sexual Orientation Straight 06/04/2019 7: 19 PM CDT documented as of this encounter Plan of Treatment Not on file documented as of this encounter Goals Goal Patient Goal Type Associated Problems Recent Progress Patient-Stated? Author CCM Chronic Pain Care Plan Chronic Care Management No change(05/15 3:32 PM CDT) Amira Dueñas, RN Note: Problem: Chronic Pain Goals: 1. Minimize further functional decline 2. Maximize quality of life 3. Control pain Strategies: - Activity/exercise program recommendation - Conservative stepwise pain medicine strategy with multi-disciplinary approach - Recommend healthy lifestyle strategies and compensatory methods as needed documented as of this encounter Visit Diagnoses Not on filedocumented in this encounter Care Teams Loading Unit Operator Crimping Relationship Specialty Start Date End Date Nic Oneal MD PCP - General Family Medicine 10/14/17 Keaton Schwarz MD [address] [address] Referring Physician Orthopedic Surgery 10/06/20 documented as of this encounter
--- OUTSIDE RECORDS SUMMARY | 2024-11-24 09:50 | XMS_ITS | Clinical Summary ---
Author Organization [facility] Address [address] [place] [address] Care Team Providers Care Soda Flaker Name Role Phone Nic Oneal MD Primary Care Provider [phone] Allergies Active Allergy Reactions Criticality Noted Date [...] 3:33 AM CDT Height 147.3 cm (4' 10) 09/14/2020 3:33 AM CDT Body Mass Index [...] series) 2020 COVID-19 Vaccine ( - season) 2024 05/10/2020, 04/19/2020 Influenza Adult (#1) 2024 Meningococcal Vaccine Aged Out 09/23/2013 No theresa mary eligible based on patient's age to complete this topic Pneumococcal Vaccine: Pediatrics (0 to 5 Years) and At-Risk Patients (6 to 49 Years) Aged Out No longer eligible based on patient's age to complete this topic RSV Immunizations Under 20 Months Aged Out No longer eligible based on patient's age to complete this topic Insurance [facility] Care Teams Soda Flaker Relationship Specialty Start Date End Date Nic Oneal MD [address] [address] PCP - General FAMILY PRACTICE 09/14/20
--- OUTSIDE RECORDS SUMMARY | 2024-11-24 09:50 | XMS_ITS | Clinical Summary ---
Author Organization [facility] Address [address] [address] Care Team Providers Care Customer Experience Associate Name Role Phone Varghese Melo MD Primary Care Provider [phone] Source Comments [facility],non-owned Affiliates and Associated Physician Practices is amultiple site organization consisting of ambulatory clinics and hospital sitesin [place], [place], [place] and [place]. This disclosure is being madepursuant to the Care Everywhere program and may not contain all information available regarding this patient. Last updated 17[employer] [facility] Allergies No known active allergies Medications * Be aware that medications may not be up to date on this document. Alwaysverify current medications with the patient. acetaminophen (TYLENOL) 325 MG tablet Take 325 mg by mouth every 4 hours as needed. Maximum allowable Acetaminophen amount = 4 Grams (4000 mg) / 24 hours. Active Active Problems Problem Noted Date Diagnosed Date Closed fracture of part of humerus 12/05/2010 Overview (11/18/2014): Social History Tobacco Use Types Packs/Day Years Used Date Smoking Tobacco: Never Assessed Comments Unknown Sex and Gender Information Value Date Recorded Sex Assigned at Not on file Legal Sex Female 12:32 PM MANAGER LINUX Gender Identity Not on file Sexual Orientation Not on file Plan of Treatment Health Maintenance Due Date Last Done Comments HIV SCREENING 2016 HPV VACCINE (1 - 3-dose series) 2016 CHLAMYDIA/GONORRHEA SCREENING 2017 MENINGOCOCCAL (Group B) VACC INE SHARED DECISION-MAKING (1 of 2 - Standard) 2017 HEPATITIS C SCREENING 10/24/2019 DTAP/TDAP/TD VACCINES (1 - Tdap) 2020 HEPATITIS B VACCINE (1 of 3 - 19+ 3-dose series) 2020 PAP SMEAR 2022 DEPRESSION SCREENING 02/19/2024 COVID-19 VACCINE (1 - 2023-2 5 season) 2024 INFLUENZA VACCINE (#1) 2024 ZOSTER VACCINE (1 of 2) 10/29/2051 HIB VACCINE Aged Out No longer eligi ble based on patient's age to complete this topic MENINGOCOCCAL GROUPS A/C/Y/W VACCINE Aged Out No longer eligible b ased on patient's age to complete this topic PNEUMOCOCCAL VACCINE Aged Out No long er eligible based on patient's age to complete this topic Care Teams Customer Experience Associate Relationship Specialty Start Date End Date Varghese Melo MD [address] [place] [address] PCP - General 11/15/10
--- OUTSIDE RECORDS SUMMARY | 2024-11-24 09:50 | XMS_ITS | Encounter Summary ---
Author Organization [facility] Address [address] [place] [address] Phone Care Team Providers Care Benefits Manager Name Role Phone Nic Oneal MD Primary Care Prov ider Keaton Schwarz MD Unavailable [phone] Encounter Details Date Type Department Care Team (Late st Contact Info) Description 05/08/2020 Ophth Exam [facility] Medicine Ophthalmology [address] [place] [address] 1[address] [place] [address] Christopher May MD [address] [place] [address] Social History Tobacco Use Types Packs/Day Years Used Date Smoking Tobacco: Never Comments No Sex and Gender Information Value Date Recorded Sex Assigned at Not on file Legal Sex Female 4:01 AM TACK PULLER Gender Identity Female 06/04/2019 7:19 PM CDT Sexual Orientation Straight 06/04/2019 7: 19 PM CDT documented as of this encounter Plan of Treatment Not on file documented as of this encounter Visit Diagnoses Not on filedocumented in this encounter Additional Health Concerns Infection Onset Date Last Indicated Resolved Time COVID: Suspected 02/21/2021 02/21/2021 02/22/2021 7:13 AM TACK PULLER COVID: Suspected 03/30/2021 03/31/2021 03/31/2021 3:06 AM TACK PULLER COVID: Suspected 03/31/2021 03/31/2021 04/01/2021 3:05 AM TACK PULLER COVID: Suspected 03/31/2021 03/31/2021 04/01/2021 6:25 AM TACK PULLER documented as of this encounter Eye Exam [...] heme, attached 360 w/o RD/RT Care Teams Benefits Manager Relationship Specialty Start Date End Date Nic Oneal MD PCP - General Family Medicine 10/14/17 Keaton Schwarz MD [address] [place] [address] Referring Physician Orthopedic Surgery 10/06/20 documented as of this encounter
[2024-11-24 10:16] LABS: Beta HCG Quantitative 69.97 mIU/ML
== END 2024-11-24 09:19 | disposition home or self-care (01) ==
LOC: ANHLAB 09:21
PROVIDERS: PCP Nurse Practitioner Family; Visit Provider Family Medicine Adolescent Medicine
DX: N91.2 Amenorrhea, unspecified (principal)
CPT/HCPCS: 36415; 84702

== ENCOUNTER 2025-01-08 12:01 | Emergency (ER) | payer OTHER, SELFPAY ==
--- NOTE | ~2025-01-08 | US_ITS ---
EXAMINATION: US venous doppler [facility] DATE: 01/08/2025 15:30 INDICATION: Elevated d-dimer. TECHNIQUE: Grayscale ultrasound images without and with compression and Doppler ultrasound images of the bilateral lower extremity veins were obtained. COMPARISON: CT angiogram chest dated 01/13/2022. FINDINGS: The visualized portions of right common femoral vein, profunda (deep) femoral vein, femoral vein, popliteal vein, peroneal veins, posterior tibial veins, and greater saphenous vein outflow are patent. The visualized portions of left common femoral vein, profunda femoral vein, femoral vein, popliteal vein, peroneal veins, posterior tibial veins, and greater saphenous vein outflow are patent. IMPRESSION: 1. No deep venous thrombosis of major veins in both lower extremities.. Reviewed, dictated and finalized at location T. IRER
--- NOTE | ~2025-01-08 | NM_ITS ---
EXAMINATION: Perfusion lung scan: DATE: 01/08/2025. INDICATION: Possible pulmonary embolus. TECHNIQUE: Multiple projections of the chest were obtained after injection of 4.1 mCi of technetium 99M MAA. COMPARISON: Chest x-ray dated 01/08/2025. FINDINGS: Normal perfusion of both lungs. There are no segmental perfusion defects seen on both sides. IMPRESSION: 1. Normal perfusion lung scan. No evidence of pulmonary embolus is seen. Reviewed, dictated and finalized at location T. RTRAIN DESIGN ENGINEER
--- NOTE | ~2025-01-08 | XR_ITS ---
EXAMINATION: XR chest 1V portable DATE: 01/08/2025 15:44 INDICATION: Chest pain. TECHNIQUE: A single frontal view of the chest was obtained. COMPARISON: Chest x-ray dated 04/10/2019 FINDINGS: Heart size is normal. Lungs are clear. Ryann and mediastinum are normal. IMPRESSION: 1. No acute findings. Reviewed, dictated and finalized at location T. T MECHANIC IMPRESSION: 1. No acute findings.
--- NOTE | 2025-01-08 12:02 | ECG_ITS ---
Test Date: 2025-01-08 12:10:02 Measurements Intervals [place] Rate: 83 P: 22 W[place]: 145 QRS: 65 QRSD: 73 T: 14 QT: 341 QTc: 402 Interpretive Statements SINUS RHYTHM WITH SINUS ARRHYTHMIA LOW QRS VOLTAGE IN PRECORDIAL LEADS [QRS DEFLECTION < 1.0 mV IN CHEST LEADS] No previous ECG available for comparison Electronically Signed On 01-08-2025 19:04:13 PRODUCT MANAGEMENT CONSULTANT by Dawit Rm M.D.
[2025-01-08 12:03] VITALS: BP 104/74; PULSE 89; RESP 16; TEMP 36.9; O2SAT 98
--- NOTE | 2025-01-08 12:08 | ED_ITS ---
HPI - SOB/Dyspnea General Chief Complaint: Shortness of Breath/Dyspnea Stated Complaint: 10 weeks , CP, SOB Time Seen by Provider: 01/08/25 12:09 Focused HPI: Patient is a 24-year-old female who presents to the ER with shortness of breath and chest pain that started around 230 this morning. She reports she is 10 weeks and this is her 1st . Patient called her OBGYN who advised her to come into the ER for further evaluation. She denies any recent fevers, cough, congestion, abdominal pain or vaginal bleeding. Patient endorses a history of GERD and hypothyroidism, for which she is treated by her PCP. GENERAL: Well-appearing, well-nourished, and in no acute distress. HEAD: Normocephalic, atraumatic. CHEST: Clear to auscultation. ?No respiratory distress. HEART: Regular rate and rhythm.? NEURO: ?Alert and oriented x3. Patient screened in triage and initial orders placed.? ?Additional care and disposition to be based upon?diagnostic testing and treatment. Related Data Allergies Allergy/AdvReac Type Severity Reaction Status Date / Time codeine AdvReac Intermediate Nausea and Verified 01/08/25 12:02 Vomiting Penicillins AdvReac Intermediate Nausea and Verified 01/08/25 12:02 Vomiting PMFSH Past Medical History Medical History History of kidney stones Hx of gastroesophageal reflux (GERD) Chronic headache Surgical History Surgical History H/O wisdom tooth extraction ~2016 History of tonsillectomy and adenoidectomy ~2010 Family History Family History Other Arthritis Depression Diabetes mellitus Heart disease Social History Social History Smoking status: Never smoker Alcohol intake: current Alcohol use details: occasionally Substance use: never Lack of Transportation: No Lack of Food: Never True Current Housing: I Have Housing Concerned About Future Housing: No Difficulty Paying Gas/Electric Bills: No Difficulty Paying for Meds: No Currently Unemployed: No Education: High School Diploma/GED Difficulty w/ Childcare or Family Care: No Living arrangements: with family 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 Gender identity (if verbalized by the patient): Female Course Vital Signs Vital signs: Vital Signs Temperature 36.9 C 01/08/25 12:03 Pulse Rate 89 01/08/25 12:03 Respiratory Rate 16 01/08/25 12:03 Blood Pressure 104/74 01/08/25 12:03 Pulse Oximetry 98 01/08/25 12:03 Oxygen Delivery Room Air 01/08/25 12:03 Temperature 36.9 C 01/08/25 12:03 Pulse Rate 77 01/08/25 19:19 Respiratory Rate 16 01/08/25 19:19 Blood Pressure 121/70 01/08/25 19:19 Pulse Oximetry 100 01/08/25 19:19 Oxygen Delivery Room Air 01/08/25 14:17 MDM - SOB/Dyspnea Lab Data 01/08/25 12:58 01/08/25 12:58 Labs: Lab Results 01/08/25 01/08/25 Range/Units 12:58 15:39 WBC 8.1 (4.5-10.0) K/mm3 RBC 4.20 (4.2-5.4) M/mm3 Hgb 12.2 (12.0-15.0) g/dL Hct 36.2 L (37.0-47.0) % MCV 86.2 (80-100) fl MCH 29.0 (26-34) pg MCHC 33.7 (32-36) g/dl RDW 13.2 (11.5-14.5) % Plt Count 276 (150-375) k/mm3 MPV 9.9 (7.4-10.4) fl Immature Gran % (Auto) 0.4 (0-0.5) % Neut % (Auto) 64.7 (45.5-73.1) % Lymph % (Auto) 26.9 (18.3-44.2) % [place] % (Auto) 6.5 (2.6-8.5) % Eos % (Auto) 1.0 (0-4.4) % Baso % (Auto) 0.5 (0.2-1.2) % Lymph # (Auto) 2.19 (0.9-3.2) K/mm3 [place] # (Auto) 0.5 (0.1-0.6) K/mm3 Eos # (Auto) 0.1 (0-0.3) K/mm3 Baso # (Auto) 0.0 (0.0-0.1) K/mm3 Abs Immat Gran (auto) 0.03 (0.00-0.031) K/mm3 Absolute Neuts (auto) 5.3 (1.3-6.7) K/mm3 Absolute Nucleated RBC 0.000 (0.0-0.012) K/mm3 Nucleated RBC % 0.0 (0.0-0.2) % PT 13.4 (11.1-14.7) Seconds INR 1.0 APTT 28.9 (22.3-36.8) Seconds D-Dimer 0.61 H (<0.48) ug/mL Sodium 134 L (137-145) mmol/L Potassium 3.8 (3.4-5.0) mmol/L Chloride 103 (98-107) mmol/L Carbon Dioxide 24 (22-30) mmol/L Anion Gap 7 (4-12) mmol/L BUN 5 L D (7-17) mg/dL Creatinine 0.50 L (0.7-1.0) mg/dL Estim Creat Clear Calc Not Reportable Estimated GFR > 60 (59 - ) Glucose 80 (65-110) mg/dL Calcium 9.2 (8.4-10.2) mg/dL Total Bilirubin 0.4 (0.2-1.3) mg/dL AST 26 (14-36) U/L ALT 32 (6-35) U/L Alkaline Phosphatase 56 (38-126) U/L Troponin I < 0.012 < 0.012 (0.000-0.034) ng/mL Total Protein 7.2 (6.3-8.2) g/dL Albumin 4.2 (3.5-5.1) g/dL Lipase 81 (23-300) U/L Discharge Plan Discharge Clinical Impression: Chest pain at rest, Anxiety Patient Disposition: Home Condition: Stable Instructions: Chest Pain (DC), Anxiety (ED) Additional Instructions: Return if symptoms are worsening , call your family physician for appointment, take Tylenol as as needed for aches and pain, continue home medications. Patient Language: Wallisian Prescriptions: No Action phentermine 37.5 mg tablet 37.5 mg PO DAILY Qty: 30 0RF Rx Instructions: Must administer 30 minutes before or 1-2 hours after breakfast triamcinolone acetonide 0.1 % cream 1 applic topical TID Qty: 15 0RF Rx Instructions: apply a small amount to rash on arms tid fosfomycin tromethamine 3 gram packet 3 g PO ONCE Qty: 1 0RF levothyroxine [Levo-T] 50 mcg tablet 50 mcg PO DAILY Qty: 90 1RF Follow-up/Referrals: Laura Sol APRN [Primary Care Provider, Family Practice]
[2025-01-08 13:07] LABS: Hematocrit 36.2 % (37.0-47.0); Hemoglobin 12.2 g/dL (12.0-15.0); Immature Granulocyte Percent A 0.4 % (0-0.5); Lymphocytes Absolute Auto 2.19 K/mm3 (0.9-3.2); Mean Corpuscular HGB Conc 33.7 g/dl (32-36); Mean Corpuscular Hemoglobin 29.0 pg (26-34); Mean Corpuscular Volume 86.2 fl (80-100); Nucleated Red Blood Cells Absolute Auto 0.000 K/mm3 (0.0-0.012); Nucleated Red Blood Cells Perc 0.0 % (0.0-0.2); Platelet Count Result 276 k/mm3 (150-375); Red Blood Count 4.20 M/mm3 (4.2-5.4); White Blood Count 8.1 K/mm3 (4.5-10.0)
[2025-01-08 13:23] LABS: INR 1.0; Partial Thromboplastin Time 28.9 Seconds (22.3-36.8); Prothrombin Time 13.4 Seconds (11.1-14.7)
[2025-01-08 13:26] LABS: Alanine Aminotransferase 32 U/L (6-35); Albumin Level 4.2 g/dL (3.5-5.1); Alkaline Phosphatase 56 U/L (38-126); Anion Gap 7 mmol/L (4-12); Aspartate Amino Transferase 26 U/L (14-36); Bilirubin,Total 0.4 mg/dL (0.2-1.3); Blood Urea Nitrogen 5 mg/dL (7-17); Calcium 9.2 mg/dL (8.4-10.2); Carbon Dioxide 24 mmol/L (22-30); Chloride 103 mmol/L (98-107); Estimated Glomerular Filt Rate > 60; Glucose 80 mg/dL (65-110); Lipase 81 U/L (23-300); Potassium 3.8 mmol/L (3.4-5.0); Sodium 134 mmol/L (137-145); Total Protein 7.2 g/dL (6.3-8.2)
[2025-01-08 13:37] LABS: Troponin I < 0.012 ng/mL (0.000-0.034)
--- NOTE | 2025-01-08 13:45 | ED.SOB ---
HPI - SOB/Dyspnea General Chief Complaint: Shortness of Breath/Dyspnea Stated Complaint: 10 weeks , CP, SOB Time Seen by Provider: 01/08/25 12:09 Source: patient Mode of arrival: ambulatory Limitations: no limitations History of Present Illness HPI Narrative: 24 years old white female 10 weeks been having intermittent chest pain over the last 7 days usually last up to 5 minutes then resolved, across the chest, tightness associated with shortness of breath, no radiation. Today pain woke her up from sleep at 2:30 a.m. in the morning with shortness of breath lasted for hours. Currently no pain but complaining of tightness across the chest. Patient is 1 para 0 0, on vitamins A lot of stress lately, dental hygiene, to be graduated in 2 weeks after finishing her tests Related Data Allergies Allergy/AdvReac Type Severity Reaction Status Date / Time codeine AdvReac Intermediate Nausea and Verified 01/08/25 12:02 Vomiting Penicillins AdvReac Intermediate Nausea and Verified 01/08/25 12:02 Vomiting Review of Systems Review of Systems: All systems reviewed & are unremarkable except as noted in HPI and below PMFSH Past Medical History Medical History History of kidney stones Hx of gastroesophageal reflux (GERD) Chronic headache Surgical History Surgical History H/O wisdom tooth extraction ~2016 History of tonsillectomy and adenoidectomy ~2010 Family History Family History Other Arthritis Depression Diabetes mellitus Heart disease Social History Social History Smoking status: Never smoker Alcohol intake: current Alcohol use details: occasionally Substance use: never Lack of Transportation: No Lack of Food: Never True Current Housing: I Have Housing Concerned About Future Housing: No Difficulty Paying Gas/Electric Bills: No Difficulty Paying for Meds: No Currently Unemployed: No Education: High School Diploma/GED Difficulty w/ Childcare or Family Care: No Living arrangements: with family 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, no gross motor deficit Course Vital Signs Vital signs: Vital Signs Temperature 36.9 C 01/08/25 12:03 Pulse Rate 89 01/08/25 12:03 Respiratory Rate 16 01/08/25 12:03 Blood Pressure 104/74 01/08/25 12:03 Pulse Oximetry 98 01/08/25 12:03 Oxygen Delivery Room Air 01/08/25 12:03 Temperature 36.9 C 01/08/25 12:03 Pulse Rate 74 01/08/25 14:18 Respiratory Rate 15 01/08/25 14:18 Blood Pressure 104/71 01/08/25 14:18 Pulse Oximetry 100 01/08/25 14:18 Oxygen Delivery Room Air 01/08/25 14:17 MDM - SOB/Dyspnea MDM Narrative Medical decision making narrative: Patient is 10 weeks , came with intermittent retrosternal chest pain, worse this morning. Vital signs are stable Physical examination is unremarkable Differential diagnosis include anxiety like symptoms, pulmonary embolism, pneumonia, pleural effusion, pneumothorax, pneumonia Blood workup today includes CBC, CMP, D-dimer showed elevated D-dimer of 0.61, otherwise within normal limit Chest x-ray showed no acute abnormality Venous Doppler lower extremity bilaterally showed no deep vein thrombosis, V/Q scan showed no pulmonary embolism Diagnosis chest pain during likely secondary to anxiety/stress The pt was discharged to home.the pt,s condition upon discharge was fair,education was provided to the pt in reference to the final impression,discharge study results,treatment,prognosis and need for follow up . Differential Diagnosis Differential diagnosis: Likely other (As above) Medical Records Attestation: I reviewed the patient's medical records. Lab Data Attestation: I reviewed the patient's lab results. 01/08/25 12:58 01/08/25 12:58 Labs: Lab Results 01/08/25 01/08/25 Range/Units 12:58 15:39 WBC 8.1 (4.5-10.0) K/mm3 RBC 4.20 (4.2-5.4) M/mm3 Hgb 12.2 (12.0-15.0) g/dL Hct 36.2 L (37.0-47.0) % MCV 86.2 (80-100) fl MCH 29.0 (26-34) pg MCHC 33.7 (32-36) g/dl RDW 13.2 (11.5-14.5) % Plt Count 276 (150-375) k/mm3 MPV 9.9 (7.4-10.4) fl Immature Gran % (Auto) 0.4 (0-0.5) % Neut % (Auto) 64.7 (45.5-73.1) % Lymph % (Auto) 26.9 (18.3-44.2) % [place] % (Auto) 6.5 (2.6-8.5) % Eos % (Auto) 1.0 (0-4.4) % Baso % (Auto) 0.5 (0.2-1.2) % Lymph # (Auto) 2.19 (0.9-3.2) K/mm3 [place] # (Auto) 0.5 (0.1-0.6) K/mm3 Eos # (Auto) 0.1 (0-0.3) K/mm3 Baso # (Auto) 0.0 (0.0-0.1) K/mm3 Abs Immat Gran (auto) 0.03 (0.00-0.031) K/mm3 Absolute Neuts (auto) 5.3 (1.3-6.7) K/mm3 Absolute Nucleated RBC 0.000 (0.0-0.012) K/mm3 Nucleated RBC % 0.0 (0.0-0.2) % PT 13.4 (11.1-14.7) Seconds INR 1.0 APTT 28.9 (22.3-36.8) Seconds D-Dimer 0.61 H (<0.48) ug/mL Sodium 134 L (137-145) mmol/L Potassium 3.8 (3.4-5.0) mmol/L Chloride 103 (98-107) mmol/L Carbon Dioxide 24 (22-30) mmol/L Anion Gap 7 (4-12) mmol/L BUN 5 L D (7-17) mg/dL Creatinine 0.50 L (0.7-1.0) mg/dL Estim Creat Clear Calc Not Reportable Estimated GFR > 60 (59 - ) Glucose 80 (65-110) mg/dL Calcium 9.2 (8.4-10.2) mg/dL Total Bilirubin 0.4 (0.2-1.3) mg/dL AST 26 (14-36) U/L ALT 32 (6-35) U/L Alkaline Phosphatase 56 (38-126) U/L Troponin I < 0.012 < 0.012 (0.000-0.034) ng/mL Total Protein 7.2 (6.3-8.2) g/dL Albumin 4.2 (3.5-5.1) g/dL Lipase 81 (23-300) U/L Imaging Data Radiologist's impression: Impressions Venous Doppler Study 01/08/25 15:31 IMPRESSION: 1. No deep venous thrombosis of major veins in both lower extremities.. Chest X-Ray 01/08/25 15:47 IMPRESSION: 1. No acute findings. Pulmonary Perfusion Imaging 01/08/25 17:47 IMPRESSION: 1. Normal perfusion lung scan. No evidence of pulmonary embolus is seen. ECG Data EKG #1: Attestation: I personally reviewed and interpreted this ECG as follows: ECG completion date: 01/08/25 Interpretation: Normal sinus rhythm at 83 beats per minute, low QRS voltage in precordial leads, no previous EKG available for comparison Critical Care Time Critical Care Time Critical Care Time: Yes Total Critical Care Time: 30 Discharge Plan Discharge Clinical Impression: Chest pain at rest, Anxiety Patient Disposition: Home Condition: Stable Instructions: Chest Pain (DC), Anxiety (ED) Additional Instructions: Return if symptoms are worsening , call your family physician for appointment, take Tylenol as as needed for aches and pain, continue home medications. Patient Language: Greek Prescriptions: No Action phentermine 37.5 mg tablet 37.5 mg PO DAILY Qty: 30 0RF Rx Instructions: Must administer 30 minutes before or 1-2 hours after breakfast triamcinolone acetonide 0.1 % cream 1 applic topical TID Qty: 15 0RF Rx Instructions: apply a small amount to rash on arms tid fosfomycin tromethamine 3 gram packet 3 g PO ONCE Qty: 1 0RF levothyroxine [Levo-T] 50 mcg tablet 50 mcg PO DAILY Qty: 90 1RF Follow-up/Referrals: Laura Sol APRN [Primary Care Provider, [facility]]
--- OUTSIDE RECORDS SUMMARY | 2025-01-08 14:06 | XMS_ITS | Continuity of Care Document ---
Author Organization [facility] Address [address] [place] [address] Care Team Providers Care Grad Intern Name Role Phone AP JOHNSON Primary Care Provider [phone] Assessment No assessment recorded. Plan of Treatment Reminders Order Date Submit Date Provider Last Modified By Organization Details Last Modified Time Details Appointments OB NEW 2024 08:30A M ULTRASOUND Not available Not available Not available [facility] LOOK 2024 09:00A M Brandon FIGUEROA MD Not available Not available Not available Lab None record ed. Referral None record ed. Procedures None record ed. Surgeries None record ed. Imaging None record ed. Medication Orders None record ed. Patient TargetsNo targets recorded. Patient InstructionsNo instructions recorded. Reason for Referral None Reported. Results Created Date Observation Date Name Description Value Unit Range Abnormal Flag Note LastModifiedBy Organization Detail LastModifiedTime 12/26/19 25 12/25/2024 imagi ng/di agnos tic resul t No observ ation record ed. REZA Castro [address], [place], [address], 12/25/2024 15:50:54 Result Notes None recorded. Procedures Surgical History Date Name Laterality Status Provider Name and Address Organization Details Recorded Time 4 Date of Last Pap Smear completed Usha Sage [facility] 12/25/2024 15:32:10 4 Colonoscopy completed Angelika Noel [facility] 09/09/2024 09:55:21 4 endoscopy completed [facility] 09/09/2024 09:55:41 extraction of wisdom tooth completed [facility] 09/09/2024 09:54:43 tonsilectomy/ad enoids completed [facility] 09/09/2024 09:54:55 Imaging Results None recorded. Procedure Notes None recorded. Medical Equipment None Reported. Allergies Allergen ID Allergen Name Allergen Category Reaction Reaction Severity Criticality Documentation Date Start Date Code Code System Note Provider Name and Address Organization Details Recorded Time 52515 codeine medicatio n Not available Not available Not available 09/09/[address] [facility] 09:50:52 20234 Product containin g penicilli n (product) medicatio n Not available Not available Not available 09/09/2024 [address] [facility] 09:50:59 Medications Name Sig Start Date Stop Date Status Note LastModified by Organization Details LastModified Time phentermine 37.5 mg tablet TAKE 1 TABLET BY MOUTH DAILY. TAKE 30 MINUTES BEFORE OR 1-2 HOURS AFTER BREAKFAST 5 09/09 completed Not Available Not Available Not Available triamcinolo ne acetonide 0.1 % topical cream APPLY TO RASH ON ARMS THREE TIMES DAILY 09/09 completed Not Available Not Available Not Available levothyroxi ne 50 mcg tablet TAKE 1 TABLET BY MOUTH ONCE DAILY active Not Available Not Available No t Available methylpredn isolone 4 mg tablets in a dose pack FOLLOW PACKAGE DIRECTION S 09/09 completed Not Available Not Available Not Available metoclopram daniel 10 mg tablet Take 1 tablet 4 times a day by oral route as needed. 2024 active Not Available Not Available Not Avai lable nitrofurant oin monohydrate /macrocryst als 100 mg capsule TAKE 1 CAPSULE BY MOUTH EVERY 12 HOURS FOR 5 DAYS 09/09 completed Not Available Not Available Not Available omeprazole 12/25 completed Not Available Not Available Not Available active Not Available Not Avai lable Not Available Vitals Date Recorded Body height Body mass index (BMI) Body weight Systolic And Diastolic Provider Name and Address Organization Details Last Updated DateTime 12/25/2024 147.32 cm 28.6 kg/m2 55572.15 g 119/80 mm[Hg] Usha Chu [facility] 12/25/2024 15:29:58 Social History Question Answer Notes LastModified by Organizat ion Details LastModified Time Tobacco Smoking Status Never Smoker Angelika Noel teagan, [facility] 09/09/2024 09:53:31 Do You Have An Advance Directive? No Information n ot available 12/25/2024 How Many Years Have You Consumed Alcohol? 2 Information not available 12/25/2024 Are You Blind Or Do You Have Difficulty Seeing? No Information n ot available 09/09/2024 What Is Your Level Of Caffeine Consumption? Occasional [email or web address] Information not available 09/09/2024 How Much Tobacco Do You Chew? None Information not available 12/25/2024 In The 14 Days Before Symptom Onset, Have You Had Close Contact With A Laboratory-confirm ed COVID-19 While That Case Was Ill? No [email or web address] Information n ot available 09/09/2024 In The 14 Days Before Symptom Onset, Have You Had Close Contact With A Person Who Is Under Investigation For COVID-19 While That Person Was Ill? No [email or web address] Information not available 09/09/2024 Have You Been To An Area Known To Be High Risk For COVID-19? No Information not available 09/09/2024 Are You Deaf Or Do You Have Serious Difficulty Hearing? No [email or web address] Information not available 09/09/2024 What Type Of Diet Are You Following? REGULAR [email or web address] Information n ot available 09/09/2024 What Is The Highest Grade Or Level Of School You Have Completed Or The Highest Degree You Have Received? [id number] Information not available 12/25/2024 Are There Any Guns Present In Your Home? Yes Information not available 12/25/2024 Do You Use Protection During Sex? No [email or web address] Information not available 09/09/2024 Do You Use Your Seat Belt Or Car Seat Routinely? Yes [email or web address] Information not available 09/09/2024 Are You Sexually Active? Yes Information not available 09/09/2024 Do You Have Smoke And Carbon Monoxide Detectors In Your Home? Yes [email or web address] Information not available 09/09/2024 How Much Tobacco Do You Smoke? No Information not available 12/25/2024 Do You Use Sunscreen Routinely? Yes [email or web address] Information not available 09/09/2024 Have You Used IV Drugs? No Information not available 12/25/2024 Do You Have Difficulty Walking Or Climbing Stairs? No [email or web address] Information not available 09/09/2024 Sex: Unknown Functional Status Question Answer Note LastModified by Organizat ion Details LastModified Time Do you use any illicit or recreational drugs? No Information not available 12/25/2024 What is your level of alcohol consumption? None Information not available 12/25/2024 Are you currently employed? Yes [email or web address] Information not available 09/09/2024 Are you able to walk independently without assistance or assistive devices? YESWOREST [email or web address] Information not available 09/09/2024 Are you able to care for yourself independently? 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 No [email or web address] Information not available 09/09/2024 What is your exercise level? Moderate [email or web address] Information not available 09/09/2024 Mental Status Question Answer Note LastModified by Organization D etails LastModified Time Do you feel stressed (tense, restless, nervous, or anxious, or unable to sleep at night)? [id number] [email or web address] Information not available 09/09/2024 Family History Relationship Description Onset Age of this Age Resolved Age Notes LastModified by Organization Details LastModified Time Maternal Grandfather Heart disease [email or web address] Not available 2024 10:00:54 Maternal Grandfather Diabetes mellitus [email or web address] Not available 2024 10:01:06 Maternal Grandfather Hypertensive disorder [email or web address] Not available 2024 10:01:22 Paternal Grandfather Heart disease [email or web address] Not available 2024 10:00:54 Paternal Grandfather Diabetes mellitus [email or web address] Not available 2024 10:01:06 Paternal Grandfather Hypertensive disorder [email or web address] Not available 2024 10:01:22 Mother Cyst of ovary [email or web address] Not available 08/2024 14:33:48 Mother Polycystic ovary syndrome [email or web address] Not available 08/2024 14:33:48 Sister Cyst of ovary [email or web address] Not available 08/2024 14:33:48 Paternal Grandmother Cyst of ovary [email or web address] Not available 08/2024 14:33:48 Paternal Uncle Cyst of ovary [email or web address] Not available 08/2024 14:33:48 Paternal Aunt Polycystic ovary syndrome [email or web address] Not available 08/2024 14:33:48 Medical History Condition Response Allergies (Food, seasonal, environmental ) N Other N Breast Cancer N Drug/Latex Allergies/Reactions N Blood Transfusion N Dermatologic Disorders N Lung Disease N Defects or Inherited Disease N Breast Problem N Gestational Diabetes N Hematologic disorders N Anesthesia Complications N History of STI N Deep Vein Thrombosis N Polycystic ovary syndrome N Anxiety Disorder N Autoimmune disease N Arthritis N Infertility N Polyps N Acid Reflux (GERD) N History of abnormal pap N Cancer N Stroke N Varicosities N Neurologic/Epilepsy N Endometriosis N High Cholesterol N Headaches N Fibromyalgia N Kidney Disease N Heart Problems N Kidney or Bladder Problems N Thyroid Problems Y GI Problems Y Eating Disorder N Anemia N Art (IVF or FET) N Psychiatric Illness N Ovarian Cancer N Diabetes N Pulmonary (TB, Asthma) N Hepatitis/Liver Disease N No Past Medical History N Eczema N Urinary Tract Infection N Abuse/Domestic Violence N Asthma N Trauma/Violence N Depression/ depression N Heart Disease N Pre-Eclampsia N Hypertension N Osteoporosis N Thrombophilias N Gynecological History Statement/Question Response Flow Moderate Date of LMP 10/26/2024 On BCP's at Conception? N Was last menstrual period normal Y STIs/STDs N HPV Vaccine Y Duration of Flow (days) 4 Current Control Method Are cycles usually normal Y Frequency of Cycle (Q days) 29 Sexually Active? Y Menses Monthly Y Age of first menstrual cycle 9 Date of Last Pap Smear 03/18/2023 Sexual Problems? N LMP Definite N Obstetrics History GPAL:G 0 P 0 0 0 0 Past Encounters Encounter ID Performer Location Encounter Start Date Encounter Closed Date Diagnosis/Indication Diagnosis SNOMED-CT Code Diagnosis ICD10 Code Diagnosis IMO Codes Diagnosis Note [id number] MARISELA MCALLISTER MD [place] [address] [address] 12/25/2024 14:33:05 12/25/2024 15:28:30 [id number] MARISELA MCALLISTER MD [place] [address] [address] 12/25/2024 14:33:44 12/25/2024 16:16:02 Nausea and vomiting 00045221 R11.2 [id number] test positive 560578615 Z32.01 422137 1. Exam today within normal limits.2. Ultrasound today confirms GA and viability. EDC . GC/Clamydi a testing done: will f/u as indicated. 4. ACOG guidelines and plan of care for reviewed with patient. All questions answered.5 . Return to office at 12 weeks for new OB visit6. Will need new OB labs at next visit.7. Genetic screening: desires at 10 weeks Genetic in vestigation procedure [id number] Z31.430 Health Concerns Section Related Observation LastModified by Organization Detai ls LastModified Time None Recorded Concern Status LastModified by Organization Details LastModified Time None Recorded Payers Encounter Date Sequence Insurance Name Policy Number Policy Carr Covered Member ID Carr Member ID Guarantor Name 12/25/2024 2 [place] [id number] [employer] ([place]) [id number] Romulo Mclaughlin [id number] Amy Mclaughlin 12/25/2024 1 [facility] [id number] Joss Ruggiero [id number] Amy Mclaughlin Notes Date Note Type Note Provider Name and Address Organization Details Recorded Time 12/25/2024 text/html Presents to the office today to confirm . Patient denies any problems up to this point with her . Patient denies cramping or vaginal bleeding. Hx of hypothyroidism; currently controlled on 50mcg levothyroxine Hx of neck pain/headaches: discussed excedrin tension headache Patient is to [place]. Lives with partner. 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 MARISELA MCALLISTER MD [address], [place], [address], [facility] 12/25/2024 16:14:58 OBGyn Episode No OBEpisode recorded.
--- OUTSIDE RECORDS SUMMARY | 2025-01-08 14:06 | XMS_ITS | Data Portability ---
Author Organization [facility] Address [address] [place] [address] Care Team Providers Care Sheet Metal Technician Name Role Phone AP JOHNSON Primary Care Provider [phone] Assessment Encounter Date Assessment Date Assessment LastModified by Organization Details LastModified Time 09/09/2024 09/09/2024 Annual gynecological exam performed. Patient will come back in a year unless there are new symptoms. [email or web address] Not available 09/09/2024 09:50:21 Plan of Treatment Reminders Order Date Submit Date Provider Last Modified By Organization Details Last Modified Time Details Appointments OB NEW 2024 08:30A M ULTRASOUND Not available Not available Not available U/S OB FIRST LOOK 2024 09:00A M Brandon FRAZIER MD Not available Not available Not available Lab genetic screen, unspeci fied specime n 2024 025 [email or web address] [facility], [address], [place], [address], 12/25/2024 16:14:19 HbA1c (hemogl obin A1c), blood 2024 025 [facility] (Lab), [address], [place], [address], 01/05/2025 18:32:38 type + screen, blood 2024 025 [facility] (Lab), [address], [place], [address], 01/05/2025 18:32:37 rubella igg Ab, titer, serum 2024 [facility] (Lab), [address], [place], [address], 01/05/2025 18:32:37 CBC w/ auto diff 2024 [facility] (Lab), [address], [place], [address], 01/05/2025 18:32:35 hepatit is C virus Ab, serum 2024 [facility] (Lab), [address], [place], [address], 01/05/2025 18:32:36 HBsAg (hepati tis B surface Ag), serum 2024 [facility] (Lab), [address] , [place], [address], 01/05/2025 18:32:36 RPR (rapid plasma reagin) , serum 2024 [facility] (Lab), [address], [place], [address], 01/05/2025 18:32:38 HIV 1+2 AB + HIV 1 p24 Ag, qualita tive immunoa ssay, serum [address] [place] [address] (Lab), [address], [place], [address], 01/05/2025 18:32:36 TSH, serum or plasma 2024 025 [facility] (Lab), [address], [place], [address], 01/05/2025 18:32:35 aneuplo idy risk, chromos ome specifi c circula ting cell free (ccf) DNA, materna l serum 2024 025 REZA Leahy, [address], [place], [address], 01/01/2025 04:12:16 Referral None recorde d. Procedures None recorde d. Surgeries None recorde d. Imaging None recorde d. Medication Orders metoclo pramide 10 mg tablet 2024 025 REZA [id number], [address], [place], [id number], 12/25/2024 16:00:42 Patient TargetsNo targets recorded. Patient InstructionsNo instructions recorded. Reason for Referral None Reported. Results Created Date Observation Date Name Description Value Unit Range Abnormal Flag Note LastModifiedBy Organization Detail LastModifiedTime 01/05/2001/04/2025 TSH, REFLE X FREE T4 TSH 1.90 uIU/m L 0.30-5 .33 Not Available [facility] (Lab) [address] [facility] [address], [place], [address], 01/05/2025 18:32:35 01/05/20 25 01/04/2025 CBC W/DIF F WBC 7.0 10'3/ uL 3.5-10 .5 Not Available [facility] (Lab) [address] [place], [address], 01/05/2025 18:32:35 01/05/20 25 01/04/2025 CBC W/DIF F RBC 4.49 10'6/ uL (based on docume nted legal sex) 3.80-5 .20 Not Available [facility] (Lab) [address] [place], [address], 01/05/2025 18:32:35 01/05/20 25 01/04/2025 CBC W/DIF F HGB 12.8 g/dL (based on docume nted legal sex) 11.6-1 5.4 Not Available [facility] (Lab) [address] [facility], [place], [address], 01/05/2025 18:32:35 01/05/20 25 01/04/2025 CBC W/DIF F HCT 39.4 % (based on docume nted legal sex) 34.0-4 5.0 Not Available [facility] (Lab) [address], [place], [address], 01/05/2025 18:32:35 01/05/20 25 01/04/2025 CBC W/DIF F MCV 87.8 fL 80.0-9 9.0 Not Available [facility] (Lab) [address], [place], [address], 01/05/2025 18:32:35 01/05/20 25 01/04/2025 CBC W/DIF F MCH 28.5 pg 27.0-3 4.0 Not Available [facility] (Lab) [address], [place], [address], 01/05/2025 18:32:35 01/05/20 25 01/04/2025 CBC W/DIF F MCHC 32.5 g/dL 32.0-3 5.5 Not Available [facility] (Lab) [address], [place], [address], 01/05/2025 18:32:35 01/05/20 25 01/04/2025 CBC W/DIF F RDW 13.3 % 11.0-1 5.0 Not Available [facility] (Lab) [address], [place], [address], 01/05/2025 18:32:35 01/05/20 25 01/04/2025 CBC W/DIF F plt 289 10'3/ uL 150-40 0 Not Available [facility] (Lab) [address], [place], [address], 01/05/2025 18:32:35 01/05/20 25 01/04/2025 CBC W/DIF F MPV 11.5 fL 8.8-12 .1 Not Available [facility] (Lab) [address] [facility], [place], [address], 01/05/2025 18:32:35 01/05/20 25 01/04/2025 CBC W/DIF F NRBC's 0.0 % 0.0 Not Available [facility] (Lab) [address], [place], [address], 01/05/2025 18:32:35 01/05/20 25 01/04/2025 CBC W/DIF F absolute NRBCs 0.0 10'3/ uL no refere nce range establ ished Not Available [facility] (Lab) [address], [place], [address], 01/05/2025 18:32:35 01/05/20 25 01/04/2025 CBC W/DIF F neutrophils 64.6 % 34.0-7 3.0 Not Available [facility] (Lab) [address] [facility] [address], [place], [address], 01/05/2025 18:32:35 01/05/20 25 01/04/2025 CBC W/DIF F lymphocytes 27.8 % 15.0-5 0.0 Not Available [facility] (Lab) [address], [place], [address], 01/05/2025 18:32:35 01/05/20 25 01/04/2025 CBC W/DIF F monocytes 4.9 % 1.0-15 .0 Not Available [facility] (Lab) [address], [place], [address], 01/05/2025 18:32:35 01/05/20 25 01/04/2025 CBC W/DIF F eosinophils 2.0 % 0.0-8. 0 Not Available [facility] (Lab) [address], [place], [address], 01/05/2025 18:32:35 01/05/20 25 01/04/2025 CBC W/DIF F basophils 0.6 % 0.0-2. 0 Not Available [facility] (Lab) [address], [place], [address], 01/05/2025 18:32:35 01/05/20 25 01/04/2025 CBC W/DIF F immature granulocytes 0.1 % no define d refere nce range Immat ure Granu locyt es (IG) repre sents autom ated enume ratio n of Metam yeloc ytes, Myelo cytes and Promy elocy jas when IG is < 5%. Blast s are not inclu ded in IG and repor ginna separ ately if prese nt. Not Available [facility] (Lab) [address], [place], [address], 01/05/2025 18:32:35 01/05/20 25 01/04/2025 CBC W/DIF F absolute neutrophils 4.5 10'3/ uL 1.5-8. 0 Not Available [facility] (Lab) [address] [facility], [place], [address], 01/05/2025 18:32:35 01/05/20 25 01/04/2025 CBC W/DIF F absolute lymphocytes 1.9 10'3/ uL 1.0-4. 0 Not Available [facility] (Lab) [address] [facility], [place], [address], 01/05/2025 18:32:35 01/05/20 25 01/04/2025 CBC W/DIF F absolute monocytes 0.3 10'3/ uL 0.2-1. 0 Not Available [facility] (Lab) [address] [facility], [place], [address], 01/05/2025 18:32:35 01/05/20 25 01/04/2025 CBC W/DIF F absolute eosinophils 0.1 10'3/ uL 0.0-0. 6 Not Available [facility] (Lab) [address], [place], [address], 01/05/2025 18:32:35 01/05/20 25 01/04/2025 CBC W/DIF F absolute basophils 0.0 10'3/ uL 0.0-0. 3 Not Available [facility] (Lab) [address], [place], [address], 01/05/2025 18:32:35 01/05/20 25 01/04/2025 CBC W/DIF F absolute immature granulocytes 0.0 10'3/ uL 0.00-0 .10 Refer ence range s for nonbi nary/ inter sex or unspe cifie d gende r patie nts have not been estab lishe d. Pleas e refer to the gia wing table for range s estab lishe d for cisge nder patie nts and evalu ate in the clini noman penny xt of the indiv idual patie nt: https ://la bhand book. nm.or g/gen derx Not Available [facility] (Lab) [address], [place], [address], 01/05/2025 18:32:35 01/05/20 25 01/04/2025 HEPAT ITIS C ANTIB NICOLE SCREE N, REFLE X TO CONFI RMATI ON hepatitis C antibody Non-re active non-re active Antib odies to HCV Not Detec ginna, does not exclu de the possi bilit y of expos ure to HCV. The test metho d is elect myra mil inesc ence immun oassa y perfo rmed on the Myra Harish e801. Value s obtai tracee with diffe rent assay metho ds by other labor atori es canno t be used inter gonzales eably . Not Available [facility] (Lab) [address], [place], [address], 01/05/2025 18:32:35 01/05/20 25 01/04/2025 HIV 1/2 ANTIG EN/AN TIBOD Y, REFLE X CONFI RMATI ON HIV antigen/anti body Nonrea ctive nonrea ctive HIV-1 antig en and HIV-1 /HIV- 2 antib odies were not detec ginna. No labor atory evide nce of HIV infec tion. Not Available [facility] (Lab) [address], [place], [address], 01/05/2025 18:32:36 01/05/20 25 01/04/2025 HEPAT ITIS B SURFA CE ANTIG EN hepatitis B surface antigen Non-re active non-re active The test metho d is elect myra mil inesc ence immun oassa y perfo rmed on the Myra Harish e801. Value s obtai tracee with diffe rent assay metho ds by other labor atori es canno t be used inter gonzales eably . Not Available [facility] (Lab) [address], [place], [address], 01/05/2025 18:32:36 01/05/20 25 01/04/2025 RUBEL LA IGG ANTIB NICOLE, QUANT rubella antibodies, IgG Reacti ve reacti ve Not Available [facility] (Lab) [address], [place], [address], 01/05/2025 18:32:37 01/05/20 25 01/04/2025 RUBEL LA IGG ANTIB NICOLE, QUANT rubella antibodies, IgG quant 106.0 IU/mL >=10 Non-r eacti ve (Non- Immun e) <10 IU/mL React kavita (Immu ne) > or = 10 IU/mL Not Available [facility] (Lab) [address], [place], [address], 01/05/2025 18:32:37 01/05/20 25 01/04/2025 TYPE/ RH/SC REEN ABO/Rh type A POS Not Available [facility] (Lab) [address], [place], [address], 01/05/2025 18:32:37 01/05/20 25 01/04/2025 TYPE/ RH/SC REEN antibody screen NEG Not Available [facility] (Lab) [address], [place], [address], 01/05/2025 18:32:37 01/05/20 25 01/04/2025 TYPE/ RH/SC REEN exp date 2024 23:59 Not Available [facility] (Lab) [address], [place], [address], 01/05/2025 18:32:37 01/05/20 25 01/04/2025 HEMOG LOBIN A1C hemoglobin A1C 4.7 % 4.0-5. 6 The Ameri can Diabe jas Assoc iatio n recom mends that a prima ry goal of thera py shoul d be a HBA1C of < 7% and that physi cians shoul d reeva luate the treat ment regim en in patie nts with HBA1C value s consi stent ly > 8%. <5.7% Xuan l 5.7 - 6.4% Incre ased risk for diabe jas >=6.5 % Diagn ostic of diabe jas <7.0% Goal of thera py >8.0% Actio n sugge sted Not Available [facility] (Lab) [address], [place], [address], 01/05/2025 18:32:38 01/05/20 25 01/04/2025 RPR SCREE N, REFLE X TITER /CONF IRMAT ION RPR qualitative Nonrea ctive nonrea ctive Not Available [facility] (Lab) [address], [place], [address], 01/05/2025 18:32:38 12/26/19 25 12/25/2024 imagi ng/di agnos tic resul t No observ ation record ed. REZA Castro [address], [place], [address], 12/25/2024 15:50:54 Result Notes None recorded. Procedures Surgical History Date Name Laterality Status Provider Name and Address Organization Details Recorded Time Date of Last Pap Smear completed Usha Sage [place] - [facility] 12/25/2024 15:32:10 4 Colonoscopy completed [facility] 09/09/2024 09:55:21 4 endoscopy completed [facility] 09/09/2024 09:55:41 extraction of wisdom tooth completed [facility] 09/09/2024 09:54:43 tonsilectomy/ad enoids completed [facility] 09/09/2024 09:54:55 Imaging Results None recorded. Procedure Notes None recorded. Medical Equipment None Reported. Allergies Allergen ID Allergen Name Allergen Category Reaction Reaction Severity Criticality Documentation Date Start Date Code Code System Note Provider Name and Address Organization Details Recorded Time 46875 codeine medicatio n Not available Not available Not available 09/09/2024 2670 RxNorm [facility] 09:50:52 84222 Product containin g penicilli n (product) medicatio n Not available Not available Not available 09/09/2024 80779 8001 SNOMED [facility] 09:50:59 Medications Name Sig Start [...] and Address Organization Details Last Updated DateTime 09/09/2024 147.32 cm 28.4 kg/m2 16101.84 g 124/80 mm[Hg] Angelika Noel [facility] 09/09/2024 09:50:45 Date Recorded Body height Body mass index (BMI) Body weight Systolic And Diastolic Provider Name and Address Organization Details Last Updated DateTime 12/25/2024 147.32 cm 28.6 kg/m2 59095.15 g 119/80 mm[Hg] Usha Sage [facility] 12/25/2024 15:29:58 Social History Question Answer Notes LastModified by Organizat ion Details LastModified Time Tobacco Smoking Status [facility]/09/2024 09:53:31 Do You Have An Advance Directive? No Information n ot available 12/25/2024 How Many Years Have You Consumed Alcohol? 2 Information not available 12/25/2024 Are You Blind Or Do You Have Difficulty Seeing? No [email or web address] Information n ot available 09/09/2024 What Is Your Level Of Caffeine Consumption? Occasional Information not available 09/09/2024 How Much Tobacco Do You Chew? None Information not available 12/25/2024 In The 14 Days Before Symptom Onset, Have You Had Close Contact With A Laboratory-confirm ed COVID-19 While That Case Was Ill? No [email or web address] Information n ot available 09/09/2024 In The 14 Days Before Symptom Onset, Have You Had Close Contact With A Person Who Is Under Investigation For COVID-19 While That Person Was Ill? No [email or web address] Information not available 09/09/2024 Have You Been To An Area Known To Be High Risk For COVID-19? No Information not available 09/09/2024 Are You Deaf Or Do You Have Serious Difficulty Hearing? No [email or web address] Information not available 09/09/2024 What Type Of Diet Are You Following? REGULAR [email or web address] Information n ot available 09/09/2024 What Is The Highest Grade Or Level Of School You Have Completed Or The Highest Degree You Have Received? [id number] Information not available 12/25/2024 Are There Any Guns Present In Your Home? Yes Information not available 12/25/2024 Do You Use Protection During Sex? No Information not available 09/09/2024 Do You Use Your Seat Belt Or Car Seat Routinely? Yes [email or web address] Information not available 09/09/2024 Are You Sexually Active? Yes [email or web address] Information not available 09/09/2024 Do You Have Smoke And Carbon Monoxide Detectors In Your Home? Yes [email or web address] Information not available 09/09/2024 How Much Tobacco Do You Smoke? No Information not available 12/25/2024 Do You Use Sunscreen Routinely? Yes [email or web address] Information not available 09/09/2024 Have You Used IV Drugs? No Information not available 12/25/2024 Do You Have Difficulty Walking Or Climbing Stairs? No [email or web address] Information not available 09/09/2024 Sex: Unknown Functional Status Question Answer Note LastModified by Organizat ion Details LastModified Time Do you use any illicit or recreational drugs? No Information not available 12/25/2024 What is your level of alcohol consumption? None Information not available 12/25/2024 Are you currently employed? Yes [email or web address] Information not available 09/09/2024 Are you able to walk independently without assistance or assistive devices? YESWOREST [email or web address] Information not available 09/09/2024 Are you able to care for yourself independently? 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 No [email or web address] Information not available 09/09/2024 What is your exercise level? Moderate [email or web address] Information not available 09/09/2024 Mental Status Question Answer Note LastModified by Organization D etails LastModified Time Do you feel stressed (tense, restless, nervous, or anxious, or unable to sleep at night)? [id number] [email or web address] Information not available 09/09/2024 Family History Relationship Description Onset Age of this Age Resolved Age Notes LastModified by Organization Details LastModified Time Maternal Grandfather Heart disease [email or web address] Not available 2024 10:00:54 Maternal Grandfather Diabetes mellitus [email or web address] Not available 2024 10:01:06 Maternal Grandfather Hypertensive disorder [email or web address] Not available 2024 10:01:22 Paternal Grandfather Heart disease [email or web address] Not available 2024 10:00:54 Paternal Grandfather Diabetes mellitus [email or web address] Not available 2024 10:01:06 Paternal Grandfather Hypertensive disorder [email or web address] Not available 2024 10:01:22 Mother Cyst of [...] ICD10 Code Diagnosis IMO Codes Diagnosis Note [id number] Kristofer Frazier MD [place] [address],[facility] [place] [address] 09/09/2024 09:27:33 09/09/2024 10:24:24 Well woman health examination [id number] Z01.419 [id number] Annual gynecologi noman exam performed. Patient will come back in a year unless there are new symptoms. Suggest Calcium with Vitamin D if not eating in diet. Patient advised to get annual flu shot. Recommend yearly physicals and perform monthly breast exams. Genetic testing is available for patients with family history of cancer. Engage in safe sexual practices, use condoms. Encouraged to have daily exercise. Avoid tobacco and illicit drugs, moderation of alcohol. If BMI greater than 25 dietary consult advised. If you have any questions please call or email. Pap smear- UTD per pt (2023) - will request patient's last pap record from previous OBGYN laboratory evaluation - PCP STI testing - declined Recommende d taking PNV daily if not using control when sexually active. [id number] MARISELA MCALLISTER MD [place] [address] [address] 12/25/2024 14:33:05 12/25/2024 15:28:30 [id number] MARISELA MCALLISTER MD [place] [address] [address] 12/25/2024 14:33:44 12/25/2024 16:16:02 Nausea and vomiting 28589263 R11.2 [id number] test positive [id number] Z32.01 [id number] 1. Exam today within normal limits.2. Ultrasound [...] at 10 weeks Genetic in vestigation procedure [id number] Z31.430 Health Concerns Section Related Observation LastModified by Organization Detai ls LastModified Time None Recorded Concern Status LastModified by Organization Details LastModified Time None Recorded Advance Directives Directive N: Payers Insurance Date Sequence Insurance Name Policy Number Policy Carr Covered Member ID Crar Member ID Guarantor Name 12/22/2024 2 [place] [id number] [facility] [id number] [facility] [id number] [facility] 12/28/2024 1 [facility] [id number] [facility] [id number] [facility] Notes Date Note Type Note Provider Name and Address Organization Details Recorded Time 5 text/html Annual GYNReported by PatientHistoryFor history, patient reportsno gynecologic complaintsandplanning in the near future.Genitourinary symptomsFor menstrual cycle, patient reportsnormal menses. For urinary symptoms, patient reportsno hematuriaandno incontinence. For vulva, patient reportsno genital lesion. For vagina, patient reportsnormal vaginal discharge.Breast symptomsFor breast, patient reportsno breast pain,no breast lump, andno nipple discharge.ContraceptionFo r current contraception, patient reportssatisfied with current contraceptionandcondoms.E ndocrine symptomsFor sexual complaints, patient reportsno sexual complaints,no pain during intercourse, andnormal libido. For menopausal symptoms, patient reportsno menopausal symptomsandnormal vaginal lubrication.Psychological symptomsFor psychological symptoms, patient reportsno depression,no anxiety, andno pmdd.Preventative measuresFor preventive measures, patient reportsencourage self breast examination,encourage regular exercise,encourage no tobacco use, andencourage regular mammograms starting age 40. New patient presents to establish care. ARLET TAYLOR NP [address], [place], [address], [facility] 09/09/2024 10:23:16 text/html Presents to the office today to confirm . Patient denies any problems up to this point with her . Patient denies cramping or vaginal bleeding. Hx of hypothyroidism; currently controlled on 50mcg levothyroxine Hx of neck pain/headaches: discussed excedrin tension headache Patient is to [place]. Lives with partner. 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 MARISELA MCALLISTER MD [address], [place], [address], [facility] 12/25/2024 16:14:58 OBGyn Episode No OBEpisode recorded.
--- OUTSIDE RECORDS SUMMARY | 2025-01-08 14:06 | XMS_ITS | Continuity of Care Document ---
[facility] Organization [facility] [address] [place] [address] Care Team Providers Care Outsole Splicer Name Role Phone PAIGE JOHNSONSSICA Primary Care Provider [phone] Assessment No assessment recorded. Plan of Treatment Reminders Order Date Submit Date Provider Last Modified By Organization Details Last Modified Time Details Appointments OB NEW 2024 08:30A M ULTRASOUND Not available Not available Not available U/S OB FIRST LOOK 2024 09:00A M Brandon FIGUEROA MD Not available Not available Not available Lab genetic screen, unspeci fied specime n 2024 025 [email or web address] [facility], [address], [place], [address], 12/25/2024 16:14:19 HbA1c (hemogl obin A1c), blood 2024 025 [facility] (Lab), [address], [place], [address], 01/05/2025 18:32:38 type + screen, blood 2024 025 [facility] (Lab), [address], [place], [address], 01/05/2025 18:32:37 rubella igg Ab, titer, serum 2024 025 [facility] (Lab), [address], [place], [address], 01/05/2025 18:32:37 CBC w/ auto diff 2024 [facility] (Lab), [address], [place], [address], 01/05/2025 18:32:35 hepatit is C virus Ab, serum 2024 [facility] (Lab), [address], [place], [address], 01/05/2025 18:32:36 HBsAg (hepati tis B surface Ag), serum 2024 [facility] (Lab), [address], [place], [address], 01/05/2025 18:32:36 RPR (rapid plasma reagin) , serum [address] [place] [address] (Lab), [address], [place], [address], 01/05/2025 18:32:38 HIV 1+2 AB + HIV 1 p24 Ag, qualita tive immunoa ssay, serum 2024 [facility] (Lab), [address], [place], [address], 01/05/2025 18:32:36 TSH, serum or plasma [address] [place] [address] (Lab), [address], [place], [address], 01/05/2025 18:32:35 aneuplo idy risk, chromos ome specifi c circula ting cell free (ccf) DNA, materna l serum 2024 [facility], [address], [place], [address], 01/01/2025 04:12:16 Referral None recorde d. Procedures None recorde d. Surgeries None recorde d. Imaging None recorde d. Medication Orders metoclo pramide 10 mg tablet 2024 025 [id number], [address] [place], [place], [id number], 12/25/2024 16:00:42 Patient TargetsNo targets recorded. Patient InstructionsNo instructions recorded. Reason for Referral None Reported. Results Created Date Observation Date Name Description Value Unit Range Abnormal Flag Note LastModifiedBy Organization Detail LastModifiedTime 01/05/2001/04/2025 TSH, REFLE X FREE T4 TSH 1.90 uIU/m L 0.30-5 .33 Not Available [facility] (Lab) [address], [place], [address], 01/05/2025 18:32:35 01/05/20 25 01/04/2025 CBC W/DIF F WBC 7.0 10'3/ uL 3.5-10 .5 Not Available [facility] (Lab) [address], [place], [address], 01/05/2025 18:32:35 01/05/20 25 01/04/2025 CBC W/DIF F RBC 4.49 10'6/ uL (based on docume nted legal sex) 3.80-5 .20 Not Available [facility] (Lab) [address], [place], [address], 01/05/2025 18:32:35 01/05/20 25 01/04/2025 CBC W/DIF F HGB 12.8 g/dL (based on docume nted legal sex) 11.6-1 5.4 Not Available [facility] (Lab) [address], [place], [address], 01/05/2025 18:32:35 01/05/20 25 01/04/2025 CBC W/DIF F HCT 39.4 % (based on docume nted legal sex) 34.0-4 5.0 Not Available [facility] (Lab) [address], [place], [address], 01/05/2025 18:32:35 01/05/20 25 01/04/2025 CBC W/DIF F MCV 87.8 fL 80.0-9 9.0 Not Available [facility] (Lab) [address], [place], [address], 01/05/2025 18:32:35 01/05/20 25 01/04/2025 CBC W/DIF F MCH 28.5 pg 27.0-3 4.0 Not Available [facility] (Lab) [address], [place], [address], 01/05/2025 18:32:35 01/05/20 25 01/04/2025 CBC W/DIF F MCHC 32.5 g/dL 32.0-3 5.5 Not Available [facility] (Lab) [address], [place], [address], 01/05/2025 18:32:35 01/05/20 25 01/04/2025 CBC W/DIF F RDW 13.3 % 11.0-1 5.0 Not Available [facility] (Lab) [address], [place], [address], 01/05/2025 18:32:35 01/05/20 25 01/04/2025 CBC W/DIF F plt 289 10'3/ uL 150-40 0 Not Available [facility] (Lab) [address], [place], [address], 01/05/2025 18:32:35 01/05/20 25 01/04/2025 CBC W/DIF F MPV 11.5 fL 8.8-12 .1 Not Available [facility] (Lab) [address], [place], [address], 01/05/2025 18:32:35 01/05/20 25 01/04/2025 CBC W/DIF F NRBC's 0.0 % 0.0 Not Available [facility] (Lab) [address], [place], [address], 01/05/2025 18:32:35 01/05/20 25 01/04/2025 CBC W/DIF F absolute NRBCs 0.0 10'3/ uL no refere nce range establ ished Not Available [facility] (Lab) [address], [place], [address], 01/05/2025 18:32:35 01/05/20 25 01/04/2025 CBC W/DIF F neutrophils 64.6 % 34.0-7 3.0 Not Available [facility] (Lab) [address], [place], [address], 01/05/2025 18:32:35 01/05/20 25 01/04/2025 CBC W/DIF F lymphocytes 27.8 % 15.0-5 0.0 Not Available [facility] (Lab) [address], [place], [address], 01/05/2025 18:32:35 01/05/20 25 01/04/2025 CBC W/DIF F monocytes 4.9 % 1.0-15 .0 Not Available [facility] (Lab) [address], [place], [address], 01/05/2025 18:32:35 01/05/20 25 01/04/2025 CBC W/DIF F eosinophils 2.0 % 0.0-8. 0 Not Available [facility] (Lab) [address], [place], [address], 01/05/2025 18:32:35 01/05/20 25 01/04/2025 CBC W/DIF F basophils 0.6 % 0.0-2. 0 Not Available [facility] (Lab) [address], [place], [address], 01/05/2025 18:32:35 01/05/20 25 01/04/2025 CBC W/DIF [...] separ ately if prese nt. Not Available [facility] (Lab) [address], [place], [address], 01/05/2025 18:32:35 01/05/20 25 01/04/2025 CBC W/DIF F absolute neutrophils 4.5 10'3/ uL 1.5-8. 0 Not Available [facility] (Lab) [address], [place], [address], 01/05/2025 18:32:35 01/05/20 25 01/04/2025 CBC W/DIF F absolute lymphocytes 1.9 10'3/ uL 1.0-4. 0 Not Available [facility] (Lab) [address], [place], [address], 01/05/2025 18:32:35 01/05/20 25 01/04/2025 CBC W/DIF F absolute monocytes 0.3 10'3/ uL 0.2-1. 0 Not Available [facility] (Lab) [address], [place], [address], 01/05/2025 18:32:35 01/05/20 25 01/04/2025 CBC W/DIF F absolute eosinophils 0.1 10'3/ uL 0.0-0. 6 Not Available [facility] (Lab) [address], [place], [address], 01/05/2025 18:32:35 01/05/20 25 01/04/2025 CBC W/DIF F absolute basophils 0.0 10'3/ uL 0.0-0. 3 Not Available [facility] (Lab) [address], [place], [address], 01/05/2025 18:32:35 01/05/20 25 01/04/2025 CBC W/DIF F absolute immature granulocytes 0.0 10'3/ uL 0.00-0 .10 Refer ence range s for nonbi nary/ inter sex or unspe cifie d gende r patie nts have not been estab lishe d. Pleas e refer to the karishmao wing table for range s estab lishe d for cisge nder patie nts and evalu ate in the clini noman penny xt of the indiv idual patie nt: https ://la bhand book. nm.or g/gen derx Not Available [facility] (Lab) [address], [place], [address], 01/05/2025 18:32:35 01/05/20 25 01/04/2025 HEPAT ITIS C ANTIB NICOLE SCREE N, REFLE X TO CONFI RMATI ON hepatitis C antibody Non-re active non-re active Antib odies to HCV Not Detec gnina, does not exclu de the possi bilit y of expos ure to HCV. The test metho d is elect myra mil inesc ence immun oassa y perfo rmed on the Myra Harish e801. Value s obtai tracee with diffe rent assay metho ds by other labor atori es canno t be used inter gonzales eably . Not Available [facility] (Lab) [address], [place], [address], 01/05/2025 18:32:35 01/05/20 25 01/04/2025 HIV 1/2 ANTIG EN/AN TIBOD Y, REFLE X CONFI RMATI ON HIV antigen/anti body Nonrea ctive nonrea ctive HIV-1 antig en and HIV-1 /HIV- 2 antib odies were not detec ginna. No labor atory evide nce of HIV infec tion. Not Available [facility] (Lab) [address], [place], [address], 01/05/2025 18:32:36 01/05/20 25 01/04/2025 HEPAT ITIS B SURFA CE ANTIG EN hepatitis B surface antigen Non-re active non-re active The test metho d is elect myra milum inesc ence immun oassa y perfo rmed on the Myra Harish e801. Value s obtai tracee with diffe rent assay metho ds by other labor atori es canno t be used inter gonzales eably . Not Available [facility] (Lab) [address], [place], [address], 01/05/2025 18:32:36 01/05/20 25 01/04/2025 RUBEL LA IGG ANTIB NICOLE, QUANT rubella antibodies, IgG Reacti ve reacti ve Not Available [facility] (Lab) [address], [place], [address], 01/05/2025 18:32:37 01/05/20 25 01/04/2025 RUBEL LA IGG ANTIB NICOLE, QUANT rubella antibodies, IgG quant 106.0 IU/mL >=10 Non-r eacti ve (Non- Immun e) <10 IU/mL React kavita (Immu ne) > or = 10 IU/mL Not Available [facility] (Lab) [address], [place], [address], 01/05/2025 18:32:37 01/05/20 25 01/04/2025 TYPE/ RH/SC REEN ABO/Rh type A POS Not Available [facility] (Lab) [address], [place], [address], 01/05/2025 18:32:37 01/05/20 25 01/04/2025 TYPE/ RH/SC REEN antibody screen NEG Not Available [facility] (Lab) [address], [place], [address], 01/05/2025 18:32:37 01/05/20 25 01/04/2025 TYPE/ RH/SC REEN exp date 2024 23:59 Not Available [facility] (Lab) [address], [place], [address], 01/05/2025 18:32:37 01/05/20 25 01/04/2025 HEMOG LOBIN A1C hemoglobin A1C 4.7 % 4.0-5. 6 The Ameri can Diabe jas Assoc iatio n recom mends that a prima ry goal of thera py angie d be a HBA1C of < 7% and that physi cians shoul d reeva luate the treat ment regim en in patie nts with HBA1C value s consi stent ly > 8%. <5.7% Xuan l 5.7 - 6.4% Incre ased risk for diabe jas >=6.5 % Diagn ostic of diabe jas <7.0% Goal of thera py >8.0% Actio n sugge sted Not Available [facility] (Lab) [address], [place], [address], 01/05/2025 18:32:38 01/05/20 25 01/04/2025 RPR SCREE N, REFLE X TITER /CONF IRMAT ION RPR qualitative Nonrea ctive nonrea ctive Not Available [facility] (Lab) [address], [place], [address], 01/05/2025 18:32:38 12/26/19 25 12/25/2024 imagi ng/di agnos tic resul t No observ ation record ed. REZA Castro [address], [place], [address], 12/25/2024 15:50:54 Result Notes None recorded. Procedures Surgical History Date Name Laterality Status Provider Name and Address Organization Details Recorded Time 4 Date of Last Pap Smear completed Usha Sage [facility] 12/25/2024 15:32:10 4 Colonoscopy completed [facility] 09/09/2024 09:55:21 4 endoscopy completed [facility] 09/09/2024 09:55:41 extraction of wisdom tooth completed [facility] 09/09/2024 09:54:43 tonsilectomy/ad enoids completed [facility] 09/09/2024 09:54:55 Imaging Results None recorded. Procedure Notes None recorded. Medical Equipment None Reported. Allergies Allergen ID Allergen Name Allergen Category Reaction Reaction Severity Criticality Documentation Date Start Date Code Code System Note Provider Name and Address Organization Details Recorded Time 27631 codeine medicatio n Not available Not available Not available 09/09/2024 2670 RxNorm [facility] 09:50:52 39274 Product containin g penicilli n (product) medicatio n Not available Not available Not available 09/09/2024 03197 8001 SNOMED [facility] 09:50:59 Medications Name Sig [...] Updated DateTime 12/25/2024 147.32 cm 28.6 kg/m2 89902.15 g 119/80 mm[Hg] Usha Chu [facility] 12/25/2024 15:29:58 Social History Question Answer Notes LastModified by Organizat ion Details LastModified Time Tobacco Smoking Status Never Smoker Angelika Noel teagan, [facility] 09/09/2024 09:53:31 Do You Have An Advance Directive? No Information n ot available 12/25/2024 How Many Years Have You Consumed Alcohol? 2 Information not available 12/25/2024 Are You Blind Or Do You Have Difficulty Seeing? No [email or web address] Information n ot available 09/09/2024 What Is Your Level Of Caffeine Consumption? Occasional Information not available 09/09/2024 How Much Tobacco Do You Chew? None Information not available 12/25/2024 In The 14 Days Before Symptom Onset, Have You Had Close Contact With A Laboratory-confirm ed COVID-19 While That Case Was Ill? No [email or web address] Information n ot available 09/09/2024 In The 14 Days Before Symptom Onset, Have You Had Close Contact With A Person Who Is Under Investigation For COVID-19 While That Person Was Ill? No Information not available 09/09/2024 Have You Been To An Area Known To Be High Risk For COVID-19? No Information not available 09/09/2024 Are You Deaf Or Do You Have Serious Difficulty Hearing? No Information not available 09/09/2024 What Type Of Diet Are You Following? REGULAR Information n ot available 09/09/2024 What Is The Highest Grade Or Level Of School You Have Completed Or The Highest Degree You Have Received? [id number] Information not available 12/25/2024 Are There Any Guns Present In Your Home? Yes Information not available 12/25/2024 Do You Use Protection During Sex? No [email or web address] Information not available 09/09/2024 Do You Use Your Seat Belt Or Car Seat Routinely? Yes [email or web address] Information not available 09/09/2024 Are You Sexually Active? Yes [email or web address] Information not available 09/09/2024 Do You Have Smoke And Carbon Monoxide Detectors In Your Home? Yes [email or web address] Information not available 09/09/2024 How Much Tobacco Do You Smoke? No Information not available 12/25/2024 Do You Use Sunscreen Routinely? Yes [email or web address] Information not available 09/09/2024 Have You Used IV Drugs? No Information not available 12/25/2024 Do You Have Difficulty Walking Or Climbing Stairs? No [email or web address] Information not available 09/09/2024 Sex: Unknown Functional Status Question Answer Note LastModified by Organizat ion Details LastModified Time Do you use any illicit or recreational drugs? No Information not available 12/25/2024 What is your level of alcohol consumption? None Information not available 12/25/2024 Are you currently employed? Yes Information not available 09/09/2024 Are you able to walk independently without assistance or assistive devices? YESWOREST [email or web address] Information not available 09/09/2024 Are you able to care for yourself independently? 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 No [email or web address] Information not available 09/09/2024 What is your exercise level? Moderate [email or web address] Information not available 09/09/2024 Mental Status Question Answer Note LastModified by Organization D etails LastModified Time Do you feel stressed (tense, restless, nervous, or anxious, or unable to sleep at night)? [id number] [email or web address] Information not available 09/09/2024 Family History Relationship Description Onset Age of this Age Resolved Age Notes LastModified by Organization Details LastModified Time Maternal Grandfather Heart disease [email or web address] Not available 2024 10:00:54 Maternal Grandfather Diabetes mellitus [email or web address] Not available 2024 10:01:06 Maternal Grandfather Hypertensive disorder [email or web address] Not available 2024 10:01:22 Paternal Grandfather Heart disease [email or web address] Not available 2024 10:00:54 Paternal Grandfather Diabetes mellitus [email or web address] Not available 2024 10:01:06 Paternal Grandfather Hypertensive disorder [email or web address] Not available 2024 10:01:22 Mother Cyst of [...] ICD10 Code Diagnosis IMO Codes Diagnosis Note [id number] MARISELA MCALLISTER MD [place] [address] [address] 12/25/2024 14:33:05 12/25/2024 15:28:30 [id number] MARISELA MCALLISTER MD [place] [address] [address] 12/25/2024 14:33:44 12/25/2024 16:16:02 Nausea and vomiting [id number] R11.2 [id number] test positive [id number] Z32.01 [id number] 1. Exam today within normal limits.2. Ultrasound today confirms GA and viability. EDC . GC/Nanda a testing done: will f/u as indicated. 4. ACOG guidelines and plan of care for reviewed with patient. All questions answered.5 . Return to office at 12 weeks for new OB visit6. Will need new OB labs at next visit.7. Genetic screening: desires at 10 weeks Genetic in vestigation procedure [id number] Z31.430 Health Concerns Section Related Observation LastModified by Organization Detai ls LastModified Time None Recorded Concern Status LastModified by Organization Details LastModified Time None Recorded Payers Encounter Date Sequence Insurance Name Policy Number Policy Carr Covered Member ID Carr Member ID Guarantor Name 12/25/2024 2 [place] [id number] [facility] [id number] Romulo Jessie [id number] Amy Mclaughlin 12/25/2024 1 [facility] [id number] [facility] [id number] Amy Mclaughlin Notes Date Note Type Note [...] ts. MARISELA MCALLISTER MD [address], [place], [address], [facility] 12/25/2024 16:14:58 OBGyn Episode No OBEpisode recorded.
[2025-01-08 14:18] VITALS: BP 104/71; PULSE 74; RESP 15; O2SAT 100
[2025-01-08 16:08] LABS: Troponin I < 0.012 ng/mL (0.000-0.034)
[2025-01-08 19:19] VITALS: BP 121/70; PULSE 77; RESP 16; O2SAT 100
== END 2025-01-08 19:20 | disposition home or self-care (01) ==
PROVIDERS: Emergency Medicine; Emergency Provider Emergency Medicine; PCP Nurse Practitioner Family
DX: O26.891 Other specified pregnancy related conditions, first trimester (principal); R07.9 Chest pain, unspecified; O99.341 Other mental disorders complicating pregnancy, first trimester; F41.9 Anxiety disorder, unspecified; O99.281 Endocrine, nutritional and metabolic diseases complicating pregnancy, first trimester; E03.9 Hypothyroidism, unspecified; O99.611 Diseases of the digestive system complicating pregnancy, first trimester; K21.9 Gastro-esophageal reflux disease without esophagitis; Z87.442 Personal history of urinary calculi; Z79.899 Other long term (current) drug therapy; Z3A.10 10 weeks gestation of pregnancy
CPT/HCPCS: 36415; 71045; 78580; 80053; 83690; 84484; 85025; 85380; 85610; 85730; 93005; 93970; 99284; A9540

== ENCOUNTER 2025-02-01 10:39 | Outpatient (CLI) | payer OTHER, SELFPAY | END 2025-02-01 10:40 | disposition home or self-care (01) | PROVIDERS: PCP Nurse Practitioner Family; Visit Provider Obstetrics & Gynecology | DX: R07.89 Other chest pain (principal) | CPT/HCPCS: 93242 ==